=== PATIENT | male | born 1960 | race African-American/Black ===

== ENCOUNTER 2017-05-26 14:40 | Emergency (ER) | payer OTHER ==
--- NOTE | 2017-05-26 15:56 | EKG ---
Test Date: 2017-05-26 Test Time: 15:25:57 Instructor Business Education: MCKAY MEASUREMENT RESULTS: Intervals: Rate: 93 [place]: 158 QRSD: 84 QT: 328 QTc: 407 Amigo: P: 40 KY: 158 QRS: -7 T: 47 INTERPRETIVE STATEMENTS: Normal sinus rhythm Nonspecific T wave abnormality Abnormal ECG Compared to ECG 12/24/2014 23:38:13 T-wave abnormality now present Electronically Signed On 05-26-17 15:55:32 CDT by Faisal German
[2017-05-26 16:09] LABS: Absolute Lymphocytes (CBC) 1.3 K/uL (0.7-4.9); Absolute Neutrophil 10.3 K/uL (1.8-8.0); Basophils % 0.2 % (0-1.3); Eosinophils % 0.5 % (0-4.4); Hematocrit 40.9 % (39.6-49.0); MCH 25.8 pg (27.0-35.0); MCV 79.7 fL (80-100); Monocytes % 8.2 % (3.3-12.3); RBC Red Blood Cell Count 5.13 M/uL (4.33-5.43)
[2017-05-26 16:16] LABS: Protime INR 1.18
[2017-05-26 16:17] LABS: Potassium 4.1 mEq/L (3.6-5.0)
[2017-05-26 16:23] LABS: Albumin 3.7 g/dL (3.2-5.5); Bilirubin Direct 0.1 mg/dL (0-0.2); Bilirubin Total 0.6 mg/dL (0.3-1.2); Magnesium 1.6 mg/dL (1.8-2.5); Protein, Total 7.3 g/dL (6.0-8.3)
[2017-05-26 16:27] LABS: CKMB Creatine Kinase MB 2.1 ng/ml (0.3-4.0)
[2017-05-26 16:33] LABS: Urine Blood TRACE (NEG); Urine Glucose NEGATIVE (NEG); Urine Protein 2+ (NEG)
--- NOTE | 2017-05-26 16:55 | RAD REPORT ---
EXAM DESCRIPTION: RAD - Chest Single View - 05/26/2017 4:02 pm CLINICAL HISTORY: Cough, shortness of breath COMPARISON: None. TECHNIQUE: AP portable chest image was obtained . FINDINGS: Lungs are clear. Heart and vasculature are normal. No measurable pleural effusion and no p neumothorax. No gross bony abnormality seen. No acute aortic findings suspected. IMPRESSION: No acute cardiopulmonary process.
[2017-05-26] MEDS ORDERED: MAGNESIUM SULFATE 1 gm IVPB 1 GM/100 ML BAG IV ONE (17:47)
[2017-05-26] MEDS ORDERED: CIPROFLOXACIN HCL 500 MG TAB ONE (17:47)
[2017-05-26] MEDS ORDERED: CEFTRIAXONE/SWI 1gm 1 GM/10 ML SYR ONE (17:47)
--- NOTE | 2017-05-26 17:47 | ER ---
Nurse's Notes [facility] Name: Christo Mcfadden Age: 57 yrs Sex: Male : 1960 Arrival Date: 05/26/2017 Time: 14:42 Bed 7 Private MD: Diagnosis: Urinary tract infection, site not specified Presentation: 05/26 14:49 Presenting complaint: Patient states: " I have been having chills for a few days now. I ph have had chest tightness and SOB also,. I am a heart pt and I see Dr Paz." Pt reports chest tightness, SOB, and dry cough, denies N/V/D, s. 14:54 Transition of care: patient was not received from another setting of care. Onset of ph symptoms was May 26, 2017. Care prior to arrival: None. 14:54 Method Of Arrival: Ambulatory ph 14:54 Acuity: JOO 3 ph Historical: - Allergies: 14:56 No Known Drug Allergies; ph - PMHx: 14:56 Anxiety; Asthma; benign brain neoplasm; Diabetes - NIDDM; GERD; Hypertension; ph microalbuminuria; Myocardial infarction; PERIPHERAL NEUROPATHY; TIA; - PSHx: 14:56 right knee; ph - Immunization history:: Pneumococcal vaccine is up to date, Flu vaccine is not up to date. - Social history:: Smoking status: Patient/guardian denies using tobacco. Screenin:30 Abuse screen: Denies threats or abuse. Denies injuries from another. Nutritional hb screening: No deficits noted. Tuberculosis screening: No symptoms or risk factors identified. Fall Risk None identified. Assessment: 15:30 General: Appears in no apparent distress. Behavior is calm, cooperative. Pain: Denies hb pain. Neuro: Level of Consciousness is awake, alert, obeys commands, Oriented to person, place, time, situation, Pupils are PERRLA. Cardiovascular: Capillary refill < 3 seconds Patient's skin is warm and dry. Respiratory: Airway is patent Trachea midline Respiratory effort is even, unlabored, Respiratory pattern is regular, symmetrical, Breath sounds are clear bilaterally. GI: No signs and/or symptoms were reported involving the gastrointestinal system. : No signs and/or symptoms were reported regarding the genitourinary system. EENT: No signs and/or symptoms were reported regarding the EENT system. Derm: No signs and/or symptoms reported regarding the dermatologic system. Skin is intact, is healthy with good turgor. Musculoskeletal: No signs and/or symptoms reported regarding the musculoskeletal system. 16:30 Reassessment: Patient appears in no apparent distress at this time. No changes from hb previously documented assessment. Patient and/or family updated on plan of care and expected duration. Pain level reassessed. Patient is alert, oriented x 3, equal unlabored respirations, skin warm/dry/pink. 17:30 Reassessment: Patient appears in no apparent distress at this time. No changes from hb previously documented assessment. Patient and/or family updated on plan of care and expected duration. Pain level reassessed. Patient is alert, oriented x 3, equal unlabored respirations, skin warm/dry/pink. 17:50 Reassessment: Discharge ordered, IV medication infusing at this time. hb 18:40 Reassessment: IV medication still infusing, discharge pending completion of infusion. hb NAD. Denies pain. VSS. 19:18 General: Appears in no apparent distress. comfortable, Behavior is calm, cooperative, ao appropriate for age. Pain: Denies pain. Neuro: Level of Consciousness is awake, alert, obeys commands, Oriented to person, place, time, situation, Pupils are PERRLA. Cardiovascular: Reports Chest pressure that was resolved Capillary refill < 3 seconds Patient's skin is warm and dry. Respiratory: Airway is patent Respiratory effort is even, unlabored, Respiratory pattern is regular, symmetrical, Breath sounds are clear bilaterally. GI: No signs and/or symptoms were reported involving the gastrointestinal system. : No signs and/or symptoms were reported regarding the genitourinary system. EENT: No signs and/or symptoms were reported regarding the EENT system. Derm: No signs and/or symptoms reported regarding the dermatologic system. Musculoskeletal: No signs and/or symptoms reported regarding the musculoskeletal system. 19:35 Reassessment: DC instructions given to patient. Patient agrees with the POC and to ao follow up with PCP. Pt has no questions at this time. Vital Signs: 14:55 BP 170 / 85; Pulse 98; Resp 18; Temp 100.2(O); Pulse Ox 97% on R/A; Weight 127.91 kg; ph Height 5 ft. 9 in. (175.26 cm); 15:30 BP 168 / 78; Pulse 89; Resp 18; Pulse Ox 100% on R/A; Pain 0/10; hb 16:25 BP 136 / 79; Pulse 78; Resp 16; Pulse Ox 99% on R/A; Pain 0/10; hb 17:35 BP 140 / 80; Pulse 89; Resp 16; Pulse Ox 100% on R/A; Pain 0/10; hb 18:52 BP 140 / 77; Pulse 88; Resp 16; Pulse Ox 100% on R/A; hb 19:18 BP 133 / 77; Pulse 87; Resp 20; Temp 99.0(O); Pulse Ox 98% on R/A; Pain 0/10; ao 14:55 Body Mass Index 41.64 (127.91 kg, 175.26 cm) ph ED Course: 14:42 Patient arrived in ED. as 14:55 Triage completed. ph 14:57 Arm band placed on. ph 15:00 Josiah Ayon PA is PHCP. cp 15:00 Chay Solorzano MD is Attending Physician. cp 15:30 Patient has correct armband on for positive identification. Placed in gown. Bed in low hb position. Call light in reach. Side rails up X 1. ekg monitor tech on. Pulse ox on. NIBP on. 15:35 EKG done, by ED staff, reviewed by Chay Solorzano MD. ag 15:45 Inserted saline lock: 20 gauge in left antecubital area, using aseptic technique. Blood hb collected. Patient maintains SpO2 saturation greater than 95% on room air. 15:59 Influenza Screen (a \\T\\ B) Sent. hb 16:01 X-ray completed. Portable x-ray completed in exam room. Patient tolerated procedure kp1 well. 16:24 Areli Prabhakar RN is Primary Nurse. hb 19:06 Report received from NAHUM Singleton. ao 19:08 Primary Nurse role handed off by Areli Prabhakar RN hb 19:34 No provider procedures requiring assistance completed. IV discontinued, intact, ao bleeding controlled, No redness/swelling at site. Pressure dressing applied. Administered Medications: 17:33 Drug: Ciprofloxacin 500 mg Route: PO; hb 17:33 Drug: Magnesium Sulfate 1 grams Route: IVPB; Infused Over: 1 hrs; Site: left hb antecubital; 17:34 Drug: Rocephin - (cefTRIAXone) 1 grams Route: IVPB; Infused Over: 30 mins; Site: left antecubital; Outcome: 17:47 Discharge ordered by . cp 19:34 Discharged to home ambulatory. ao 19:34 Condition: stable 19:34 Discharge instructions given to patient, Instructed on discharge instructions, follow up and referral plans. Demonstrated understanding of instructions, follow-up care, medications, Prescriptions given X 2. 19:35 Patient left the ED. ao Addendum: 05/29/2017 10:17 Addendum: Culture Results: Positive urine culture. No further action required. Bacteria d m5 sensitive to prescribed antibiotic. Signatures: Fallon Junior, RN RN Marycarmen Mcgee Ana ag Hall, Patricia, RN RN Josiah De Souza PA PA cp Ortiz, Alex RN RN Areli Shelley RN RN Iveth Will kp1 Corrections: (The following items were deleted from the chart) 05/26 14:55 14:49 Presenting complaint: Patient states: " I have been having chills for a few days ph now. I have had chest tightness and SOB also,. I am a heart pt and I see Dr Paz." Pt reports chest tightness, SOB, and ph
--- NOTE | 2017-05-26 17:47 | EDPHYS ---
Physician Documentation [facility] Name: Christo Mcfadden Age: 57 yrs Sex: Male : 1960 Arrival Date: 05/26/2017 Time: 14:42 Bed 7 Private MD: ED Physician Chay Solorzano HPI: 05/26 15:25 This 57 yrs old Black Male presents to ER via Ambulatory with complaints of Chest cp Tightness, Labored Breathing. 15:25 chills. Onset: The symptoms/episode began/occurred 2 day(s) ago. cp 15:25 Severity of symptoms: in the emergency department the symptoms are unchanged despite cp home interventions. 15:25 Patient c/o of generalized chills for past 2 days, chronic right side chest pain for cp over 1 year and intermittent SOB. Patient reports slight cough and low grade fever. Historical: - Allergies: 14:56 No Known Drug Allergies; ph - PMHx: 14:56 Anxiety; Asthma; benign brain neoplasm; Diabetes - NIDDM; GERD; Hypertension; ph microalbuminuria; Myocardial infarction; PERIPHERAL NEUROPATHY; TIA; - PSHx: 14:56 right knee; ph - Immunization history:: Pneumococcal vaccine is up to date, Flu vaccine is not up to date. - Social history:: Smoking status: Patient/guardian denies using tobacco. ROS: 15:30 Eyes: Negative for injury, pain, redness, and discharge. cp 15:30 Constitutional: Positive for chills, low grade fever, Negative for poor PO intake. 15:30 ENT: Negative for drainage from ear(s), ear pain, sore throat, difficulty swallowing, difficulty handling secretions. 15:30 Cardiovascular: Negative for chest pain, edema, palpitations. 15:30 Respiratory: Positive for cough, with no reported sputum, Negative for wheezing. 15:30 Abdomen/GI: Negative for abdominal pain, nausea, vomiting, and diarrhea, black/tarry stool, rectal bleeding. 15:30 : Negative for urinary symptoms. 15:30 Skin: Negative for cellulitis, rash. 15:30 Neuro: Negative for altered mental status, dizziness, headache, syncope, near syncope, weakness. 15:30 All other systems are negative. Exam: 15:30 ECG was reviewed by the Attending Physician. cp 15:33 Constitutional: The patient appears in no acute distress, alert, awake, cp non-diaphoretic, non-toxic, well developed, well nourished. 15:33 Head/Face: Normocephalic, atraumatic. Eyes: Pupils equal round and reactive to light, cp extra-ocular motions intact. Lids and lashes normal. Conjunctiva and sclera are non-icteric and not injected. Cornea within normal limits. Periorbital areas with no swelling, redness, or edema. ENT: Nares patent. No nasal discharge, no septal abnormalities noted. Tympanic membranes are normal and external auditory canals are clear. Oropharynx with no redness, swelling, or masses, exudates, or evidence of obstruction, uvula midline. Mucous membranes moist. Neck: Trachea midline, no thyromegaly or masses palpated, and no cervical lymphadenopathy. Supple, full range of motion without nuchal rigidity, or vertebral point tenderness. No Meningismus. Chest/axilla: Normal chest wall appearance and motion. Nontender with no deformity. No lesions are appreciated. 15:33 Cardiovascular: Rate: normal, Rhythm: regular, Pulses: Pulses are 2+ in right radial artery and left radial artery. Edema: is not appreciated, JVD: is not appreciated. 15:33 Respiratory: the patient does not display signs of respiratory distress, Respirations: normal, no use of accessory muscles, no retractions, no splinting, no tachypnea, labored breathing, is not present, Breath sounds: are clear throughout, no decreased breath sounds, no stridor, no wheezing. 15:33 Abdomen/GI: Inspection: obese Bowel sounds: active, all quadrants, Palpation: abdomen is soft and non-tender, in all quadrants, rebound tenderness, is not appreciated, voluntary guarding, is not appreciated, involuntary guarding, is not appreciated. 15:33 Back: pain, is absent, ROM is normal. 15:33 Skin: cellulitis, is not appreciated, no rash present. 15:33 Neuro: Orientation: to person, place \T\ time. Mentation: is normal, Cerebellar function: is grossly normal, Motor: moves all fours, strength is normal, Sensation: no obvious gross deficits. Vital Signs: 14:55 BP 170 / 85; Pulse 98; Resp 18; Temp 100.2(O); Pulse Ox 97% on R/A; Weight 127.91 kg; ph Height 5 ft. 9 in. (175.26 cm); 15:30 BP 168 / 78; Pulse 89; Resp 18; Pulse Ox 100% on R/A; Pain 0/10; hb 16:25 BP 136 / 79; Pulse 78; Resp 16; Pulse Ox 99% on R/A; Pain 0/10; hb 17:35 BP 140 / 80; Pulse 89; Resp 16; Pulse Ox 100% on R/A; Pain 0/10; hb 18:52 BP 140 / 77; Pulse 88; Resp 16; Pulse Ox 100% on R/A; hb 19:18 BP 133 / 77; Pulse 87; Resp 20; Temp 99.0(O); Pulse Ox 98% on R/A; Pain 0/10; ao 14:55 Body Mass Index 41.64 (127.91 kg, 175.26 cm) ph MDM: 15:00 Patient medically screened. cp 16:00 Differential Diagnosis sepsis, flu, pneumonia, UTI, cardiac arrythmia, angina. cp 17:45 Data reviewed: vital signs, nurses notes, lab test result(s), EKG, radiologic studies, cp plain films. 17:45 Test interpretation: by ED physician or midlevel provider: ECG, plain radiologic cp studies. Counseling: I had a detailed discussion with the patient and/or guardian regarding: the historical points, exam findings, and any diagnostic results supporting the discharge/admit diagnosis, lab results, radiology results, the need for outpatient follow up, a family practitioner, to return to the emergency department if symptoms worsen or persist or if there are any questions or concerns that arise at home. 17:45 ED course: VSS. Labs reviewed and urine positive for nitrites, WBCs and bacteria. Chest cp pain and SOB chronic. Will discharge to home for continued monitoring. 05/26 15:45 Order name: Basic Metabolic Panel cp 05/26 15:45 Order name: BNP cp 05/26 15:45 Order name: CBC with Diff cp 05/26 15:45 Order name: Ckmb cp 05/26 15:45 Order name: CPK cp 05/26 15:45 Order name: LFT's cp 05/26 15:45 Order name: Magnesium cp 05/26 15:45 Order name: PT-INR cp 05/26 15:45 Order name: Ptt, Activated cp 05/26 15:45 Order name: Troponin (emerg Dept Use Only) cp 05/26 15:45 Order name: Influenza Screen (a \T\ B) 05/26 16:11 Order name: CBC with Automated Diff; Complete Time: 17:00 EDMS 05/26 17:04 Interpretation: Normal except: WBC 12.7; HGB 13.2; MCV 79.7; MCH 25.8; RDW 15.3; LISSETT% cp 81.1; LYM% 10.0; NEUT A 10.3. 05/26 16:16 Order name: Influenza Screen (A ; Complete Time: 17:00 EDMS 05/26 15:45 Order name: XRAY Chest (1 view) 05/26 16:17 Order name: Basic Metabolic Panel; Complete Time: 17:00 EDMS 05/26 17:04 Interpretation: Normal except: GLUC 136; GFR 72. 05/26 16:17 Order name: Protime (+INR); Complete Time: 17:00 EDMS 05/26 17:23 Interpretation: Abnormal: PT 14.0. 05/26 16:17 Order name: PTT, Activated Partial Thromb; Complete Time: 17:00 EDMS 05/26 16:24 Order name: Liver (Hepatic) Function; Complete Time: 17:00 EDMS 05/26 16:24 Order name: Creatine Phosphokinase; Complete Time: 17:00 EDMS 05/26 17:30 Interpretation: CPK 282; Reviewed. 05/26 16:24 Order name: Magnesium; Complete Time: 17:00 EDMS 05/26 17:25 Interpretation: MG 1.6; Reviewed. 05/26 16:24 Order name: Troponin (Emerg Dept Use Only); Complete Time: 17:00 EDMS 05/26 16:27 Order name: CKMB Creatine Kinase MB; Complete Time: 17:00 EDMS 05/26 16:33 Order name: Urine Dipstick-Ancillary; Complete Time: 17:00 EDMS 05/26 17:04 Interpretation: Normal except: UBLD TRACE; UPROT 2+; U NIT POSITIVE; UESTR 1+. 05/26 16:36 Order name: BNP B-Type Natriuretic Peptide; Complete Time: 17:00 EDMS 05/26 16:55 Order name: RAD; Complete Time: 17:00 EDMS 05/26 17:05 Order name: Urine Microscopic Only 05/26 17:05 Order name: Urine Culture 05/26 18:16 Order name: Urine Microscopic Only [facility] 05/26 15:22 Order name: EKG; Complete Time: 15:23 sv 05/26 15:22 Order name: EKG - Nurse/Tech; Complete Time: 15:35 sv 05/26 15:45 Order name: Cardiac monitoring; Complete Time: 15:59 cp 05/26 15:45 Order name: IV Saline Lock; Complete Time: 15:59 cp 05/26 15:45 Order name: Labs collected and sent; Complete Time: 15:59 cp 05/26 15:45 Order name: O2 Per Protocol; Complete Time: 16:00 cp 05/26 15:45 Order name: O2 Sat Monitoring; Complete Time: 16:00 cp 05/26 15:45 Order name: Urine Dipstick-Ancillary (obtain specimen); Complete Time: 17:34 cp EC:30 Rate is 93 beats/min. CO interval is normal. QRS interval is normal. QT interval is cp normal. No ST changes noted. Interpreted by me. Reviewed by me. Administered Medications: 17:33 Drug: Ciprofloxacin 500 mg Route: PO; hb 17:33 Drug: Magnesium Sulfate 1 grams Route: IVPB; Infused Over: 1 hrs; Site: left hb antecubital; 17:34 Drug: Rocephin - (cefTRIAXone) 1 grams Route: IVPB; Infused Over: 30 mins; Site: left hb antecubital; Disposition: 05/26/17 17:47 Discharged to Home. Impression: Urinary tract infection, site not specified. - Condition is Stable. - Discharge Instructions: Urinary Tract Infection. - Prescriptions for Cipro 500 mg Oral Tablet - take 1 tablet by ORAL route every 12 hours for 10 days; 20 tablet. Ibuprofen 800 mg Oral Tablet - take 1 tablet by ORAL route every 8 hours As needed take with food; 30 tablet. - Medication Reconciliation Form, Thank You Letter, Antibiotic Education, Prescription Opioid Use form. - Follow up: Private Physician; When: 1 - 2 days; Reason: Recheck today's complaints. - Problem is new. - Symptoms have improved. Addendum: 05/30/2017 07:27 Co-signature as Attending Physician, Chay Solorzano MD. g s Signatures: Dispatcher [facility] Suyapa Hampton RN RN Destiny Penn RN RN ph Page, YOCASTA Rahman cp, Alex, RN RN ao Baxter, Heather, RN RN hb Starr, Gregory, MD MD gs Corrections: (The following items were deleted from the chart) 05/26 16:00 15:45 URINE DIPSTICK--ANCILLARY+U.LAB.BRZ ordered. EDMS EDMS
[2017-05-26 18:15] LABS: Urine Amorphous Sediment 2+ /HPF (NONE SEEN); Urine Bacteria 20-50 /HPF (NONE SEEN); Urine Culture Reflex Order NOT NEEDED
[2017-05-26 19:47] VITALS: BP 133/77; TEMP 99; O2SAT 98
== END 2017-05-26 19:35 | disposition home or self-care (01) ==
LOC: ER 14:40
DX: N39.0 Urinary tract infection, site not specified (principal); I10 Essential (primary) hypertension
CPT/HCPCS: 36415; 71045; 80048; 80076; 81003; 81015; 82550; 82553; 83735; 83880; 84484; 85025; 85610; 85730; 87077; 87086; 87088; 87186; 87804; 93005; 96374; 96375; 99285; J0696; J3475

== ENCOUNTER 2017-06-11 06:21 | Day surgery (SDC) | payer MEDICAID ==
[2017-06-07 10:21] LABS: Absolute Lymphocytes (CBC) 2.3 K/uL (0.7-4.9); Absolute Monocytes 0.7 K/uL (0.1-1.3); Absolute Neutrophil 5.5 K/uL (1.8-8.0); Basophils % 0.5 % (0-1.3); Eosinophils % 1.4 % (0-4.4); Hematocrit 41.4 % (39.6-49.0); Lymphocytes % 26.4 % (15.3-44.8); MCH 26.2 pg (27.0-35.0); MCV 79.7 fL (80-100); MPV 8.7 fL (7.6-11.3); Monocytes % 7.9 % (3.3-12.3)
[2017-06-07 10:22] LABS: Protime INR 0.99
[2017-06-07 10:37] LABS: BUN Blood Urea Nitrogen 11 mg/dL (6-20); Bicarbonate 26 mEq/L (21-31); Glucose Level 144 mg/dL (65-120); Sodium Level 134 mEq/L (135-145)
--- NOTE | 2017-06-07 10:39 | RAD REPORT ---
EXAM DESCRIPTION: RADOP - Outpt Chest Pa/Lat (2 Views) - 06/07/2017 9:46 am CLINICAL HISTORY: Hypertension, diabetes. COMPARISON: 05/26/2017 FINDINGS: The lungs are clear. The heart is upper limit of normal in size. No displaced fractures. IMPRESSION: No acute or concerning finding suspected.
[2017-06-11] MEDS ORDERED: NA CHLORIDE 0.9% 500 ML ONE (06:29)
[2017-06-11] MEDS ORDERED: LIDOCAINE 1% 20 ML MDV ONE ×2 (06:31→07:06)
[2017-06-11] MEDS ORDERED: HEPA 1000U/500MLS 1,000 UNIT/500 ML BAG IV ONE (07:06)
[2017-06-11] MEDS ORDERED: MIDAZOLAM HCL 2 MG/2 ML INJ ONE ×3 (07:07→07:48)
[2017-06-11] MEDS ORDERED: FENTANYL CITR 100 MCG/2 ML ONE (07:07)
[2017-06-11 11:49] VITALS: BP 127/47; TEMP 97.4; O2SAT 99
--- NOTE | 2017-06-12 03:06 | OP ---
Date of Procedure: 06/11/2017 Surgeon: Jesús Paula MD Ballistics Expert Forensic: Carol Lamar. Admitted today, 06/11/2017, as an outpatient for a left heart catheterization, selective coronary art eriogram, and LV-gram. Indication For The Procedure: History of coronary artery disease with symptoms consistent with unsta ble angina. History Of Present Illness: Mr. Mcfadden is a 57-year-old black male, who has had apparently some comp licated stents in the past in the RCA and a stent in the LAD. He came in, saw him in the office rece ntly with symptoms sounding like unstable angina. He had a normal EKG. He was admitted as an outpat ient. Procedure In Detail: He was prepped and prepped and draped in the routine sterile fashion. He was g iven 2 mg of Versed for IV sedation. Right common femoral artery access was obtained with a 6-Slovak sheath. Angiogram data after the case was normal. Angio-Seal was used to close the case. Selectiv e coronary arteriogram done with Shiraz catheter left and right, showed patent stent in the LAD, nor mal circumflex. He had some minimal disease in the RCA with plaquing. He had about 40% distal steno sis in the posterior descending artery off the RCA. He was right abdominal. LV-gram was normal. Complications: There were no complications. Estimated Blood Loss: 5 cc. Total Conscious Sedation: 30 minutes. Final Assessment: Mild coronary artery disease with patent stents in the left anterior descending ar ileana. We will continue medical therapy. He will go home today and follow up with me in 2 weeks. CALEB/FRANK Voice ID: [id number] Report ID: [id number]
== END 2017-06-11 11:55 | disposition home or self-care (01) ==
LOC: CCL 06:21
DX: I25.110 Atherosclerotic heart disease of native coronary artery with unstable angina pectoris (principal); I10 Essential (primary) hypertension; Z95.5 Presence of coronary angioplasty implant and graft; E78.6 Lipoprotein deficiency; E11.9 Type 2 diabetes mellitus without complications
CPT/HCPCS: 36415; 71046; 80048; 82962; 85025; 85610; 85730; 93458; C1893; J2250; J3010

== ENCOUNTER 2018-04-21 08:21 | Inpatient (IN) | payer OTHER ==
--- OUTSIDE RECORDS SUMMARY | 2018-04-21 08:23 | XMS REPORT ---
:1960 [facility] Address [address] [place] [address] [place] [id number] Care Team Providers Name Role Phone Unavailable Unavailable Unavailable Problems This patient has no known problems. Allergies, Adverse Reactions, Alerts This patient has no known allergies or adverse reactions. Medications This patient has no known medications.
[2018-04-21 08:43] LABS: Absolute Lymphocytes (CBC) 3.4 K/uL (0.7-4.9); Absolute Monocytes 0.9 K/uL (0.1-1.3); Absolute Neutrophil 5.3 K/uL (1.8-8.0); Basophils % 0.7 % (0-1.3); MPV 9.2 fL (7.6-11.3); Monocytes % 9.3 % (3.3-12.3); RBC Red Blood Cell Count 5.97 M/uL (4.33-5.43)
[2018-04-21 08:47] LABS: Protime INR 1.02
--- NOTE | 2018-04-21 08:51 | EKG ---
Test Date: 2018-04-21 Test Time: 08:31:49 Corporate Receptionist: ESTELA MEASUREMENT RESULTS: Intervals: Rate: 91 MD: 164 QRSD: 90 QT: 354 QTc: 435 Spangler: P: 78 MD: 164 QRS: 43 T: 22 INTERPRETIVE STATEMENTS: Normal sinus rhythm Normal ECG Compared to ECG 05/26/2017 15:25:57 T-wave abnormality no longer present Electronically Signed On 04-21-18 08:50:14 SHOP HELPER by Faisal German
[2018-04-21] MEDS ORDERED: ONDANSETRON 4 MG/2 ML VIAL ONE (08:53)
[2018-04-21] MEDS ORDERED: NA CHLORIDE 0.9% 1,000 ML ONE (08:53)
[2018-04-21] MEDS ORDERED: MORPHINE 4 MG/ML SYR ONE (08:53)
[2018-04-21 09:12] LABS: ALT/SGPT 23 U/L (12-78); AST/SGOT 11 U/L (15-37); Albumin 3.8 g/dL (3.4-5.0); Alkaline Phosphatase 81 U/L (45-117); BUN Blood Urea Nitrogen 14 mg/dL (7-18); Bicarbonate 27 mmol/L (21-32); Bilirubin Direct < 0.1 mg/dL (0-0.2); Bilirubin Total 0.3 mg/dL (0.2-1.0); Glucose Level 155 mg/dL (74-106); Lipase 115 U/L (73-393); Magnesium 2.1 mg/dL (1.8-2.4); NT PRO-BNP 44 pg/mL (<125); Protein, Total 8.5 g/dL (6.4-8.2); Sodium Level 138 mmol/L (136-145); Troponin (Emerg Dept Use Only) < 0.02 ng/mL (0.0-0.045)
--- NOTE | 2018-04-21 09:19 | EDPHYS ---
Physician Documentation [facility] Name: Christo Mcfadden Age: 57 yrs Sex: Male : 1960 Arrival Date: 04/21/2018 Time: 08:22 Bed 4 Private MD: Femi Walsh E ED Physician Josiah Prakash HPI: 04/21 09:14 This 57 yrs old Black Male presents to ER via Wheelchair with complaints of Chest Pain. traci 09:14 The patient or guardian reports chest pain that is located primarily in the substernal traci area. Onset: just prior to arrival. The pain does not radiate. Associated signs and symptoms: The patient has no apparent associated signs or symptoms. The chest pain is described as dull, a pressure. Duration: The patient or guardian reports multiple episodes, that are intermittent, with no pattern. Severity of pain: At its worst the pain was moderate in the emergency department the pain is unchanged. Historical: - Allergies: 08:28 No Known Allergies; ss - PMHx: 08:28 Anxiety; Asthma; benign brain neoplasm; Diabetes - NIDDM; GERD; Hypertension; ss microalbuminuria; Myocardial infarction; PERIPHERAL NEUROPATHY; TIA; - PSHx: 08:28 right knee; cardiac stents x 5; ss - Immunization history:: Adult Immunizations up to date. - Social history:: Smoking status: Patient/guardian denies using tobacco. - Ebola Screening: : Patient denies exposure to infectious person Patient denies travel to an Ebola-affected area in the 21 days before illness onset. - Family history:: not pertinent. ROS: 09:14 Constitutional: Negative for fever, chills, and weight loss, Eyes: Negative for injury, traci pain, redness, and discharge, ENT: Negative for injury, pain, and discharge, Neck: Negative for injury, pain, and swelling, Respiratory: Negative for shortness of breath, cough, wheezing, and pleuritic chest pain, Abdomen/GI: Negative for abdominal pain, nausea, vomiting, diarrhea, and constipation, Back: Negative for injury and pain, : Negative for injury, bleeding, discharge, and swelling, MS/Extremity: Negative for injury and deformity, Skin: Negative for injury, rash, and discoloration, Neuro: Negative for headache, weakness, numbness, tingling, and seizure, Psych: Negative for depression, anxiety, suicide ideation, homicidal ideation, and hallucinations, Allergy/Immunology: Negative for hives, rash, and allergies, Endocrine: Negative for neck swelling, polydipsia, polyuria, polyphagia, and marked weight changes, Hematologic/Lymphatic: Negative for swollen nodes, abnormal bleeding, and unusual bruising. 09:14 Constitutional: Positive for fatigue, malaise. 09:14 Cardiovascular: Positive for chest pain, of the chest. Exam: 09:14 Constitutional: This is a well developed, well nourished patient who is awake, alert, traci and in no acute distress. Head/Face: Normocephalic, atraumatic. Eyes: Pupils equal round and reactive to light, extra-ocular motions intact. Lids and lashes normal. Conjunctiva and sclera are non-icteric and not injected. Cornea within normal limits. Periorbital areas with no swelling, redness, or edema. ENT: Nares patent. No nasal discharge, no septal abnormalities noted. Tympanic membranes are normal and external auditory canals are clear. Oropharynx with no redness, swelling, or masses, exudates, or evidence of obstruction, uvula midline. Mucous membranes moist. Neck: Trachea midline, no thyromegaly or masses palpated, and no cervical lymphadenopathy. Supple, full range of motion without nuchal rigidity, or vertebral point tenderness. No Meningismus. Chest/axilla: Normal chest wall appearance and motion. Nontender with no deformity. No lesions are appreciated. Cardiovascular: Regular rate and rhythm with a normal S1 and S2. No gallops, murmurs, or rubs. Normal PMI, no JVD. No pulse deficits. Respiratory: Lungs have equal breath sounds bilaterally, clear to auscultation and percussion. No rales, rhonchi or wheezes noted. No increased work of breathing, no retractions or nasal flaring. Abdomen/GI: Soft, non-tender, with normal bowel sounds. No distension or tympany. No guarding or rebound. No evidence of tenderness throughout. Back: No spinal tenderness. No costovertebral tenderness. Full range of motion. Male : Normal genitalia with no discharge or lesions. Skin: Warm, dry with normal turgor. Normal color with no rashes, no lesions, and no evidence of cellulitis. MS/ Extremity: Pulses equal, no cyanosis. Neurovascular intact. Full, normal range of motion. Neuro: Awake and alert, GCS 15, oriented to person, place, time, and situation. Cranial nerves II-XII grossly intact. Motor strength 5/5 in all extremities. Sensory grossly intact. Cerebellar exam normal. Normal gait. Psych: Awake, alert, with orientation to person, place and time. Behavior, mood, and affect are within normal limits. Vital Signs: 08:28 BP 192 / 110; Pulse 91; Resp 25; Temp 98.5(O); Pulse Ox 100% on R/A; Weight 131.54 kg; ss Height 5 ft. 9 in. (175.26 cm); Pain 10/10; 09:30 BP 162 / 74; Pulse 72; Resp 20; Pulse Ox 97% on R/A; ph 10:30 BP 149 / 88; Pulse 68; Resp 17; Pulse Ox 98% on R/A; tw2 11:30 BP 135 / 74; Pulse 73; Resp 20; Pulse Ox 100% ; sv 08:28 Body Mass Index 42.83 (131.54 kg, 175.26 cm) MDM: 08:29 Patient medically screened. [facility] 09:16 Data reviewed: vital signs, nurses notes, lab test result(s), EKG, radiologic studies, traci plain films. 04/21 08:31 Order name: Basic Metabolic Panel; Complete Time: 09:41 ph 04/21 08:31 Order name: CBC with Diff; Complete Time: 09:05 ph 04/21 08:31 Order name: LFT's; Complete Time: 09:41 ph 04/21 08:31 Order name: Magnesium; Complete Time: 09:41 ph 04/21 08:31 Order name: NT PRO-BNP; Complete Time: 09:41 ph 18 08:31 Order name: PT-INR; Complete Time: 09:05 ph 18 08:31 Order name: Troponin (emerg Dept Use Only); Complete Time: 09:41 ph 04/21 08:31 Order name: XRAY Chest (1 view); Complete Time: 09:41 ph 04/21 08:32 Order name: Lipase; Complete Time: 09:41 traci 04/21 08:31 Order name: EKG; Complete Time: 08:32 ph 04/21 08:31 Order name: Cardiac monitoring; Complete Time: 08:57 ph 04/21 08:31 Order name: EKG - Nurse/Tech; Complete Time: 08:57 ph 04/21 08:31 Order name: IV Saline Lock; Complete Time: 08:57 ph 04/21 08:31 Order name: Labs collected and sent; Complete Time: 08:57 ph 04/21 08:31 Order name: O2 Per Protocol; Complete Time: 08:57 ph 04/21 08:31 Order name: O2 Sat Monitoring; Complete Time: 08:57 ph Administered Medications: 08:56 Drug: NS 0.9% 1000 ml Route: IV; Rate: 125 ml/hr; Site: left antecubital; ph 08:56 Drug: morphine 4 mg Route: IVP; Site: left antecubital; ph 09:58 Follow up: Response: No adverse reaction; Pain is decreased ph 08:56 Drug: Zofran 4 mg Route: IVP; Site: left antecubital; ph 09:58 Follow up: Response: No adverse reaction ph 09:26 Drug: Lopressor (metoprolol TARTRATE) 50 mg Route: PO; ph 09:58 Follow up: Response: No adverse reaction ph 09:27 Drug: Aspirin 81 mg Route: PO; ph 09:59 Follow up: Response: No adverse reaction ph 09:28 Drug: Lovenox 1 mg/kg {Note: 130 mg dose given.} Route: Sub-Q; Site: right lower ph abdomen; 09:58 Follow up: Response: No adverse reaction ph Disposition: 04/21/18 09:18 Hospitalization ordered by Kenneth Latif for Observation. Preliminary diagnosis are Chest pain, unspecified, Type 2 diabetes mellitus, Essential (primary) hypertension, Obesity, unspecified. - Bed requested for Telemetry/MedSurg (observation). - Status is Observation. tw2 - Condition is Fair. - Problem is new. - Symptoms have improved. UTI on Admission? No Signatures: Dispatcher [employer] Breanna Block RN RN Josiah Jacobsen MD MD cha Smirch, Shelby RN Destiny Dawkins RN RN ph Wise, Tara, RN RN tw2 Corrections: (The following items were deleted from the chart) 11:15 09:18 Hospitalization Ordered by Kenneth Latif DO for Observation. Preliminary romy diagnosis is Chest pain, unspecified; Type 2 diabetes mellitus; Essential (primary) hypertension; Obesity, unspecified. Bed requested for Telemetry/MedSurg (observation). Status is Observation. Condition is Fair. Problem is new. Symptoms have improved. UTI on Admission? No. traci 11:50 11:15 04/21/2018 09:18 Hospitalization Ordered by Kenneth Latif DO for Observation. tw2 Preliminary diagnosis is Chest pain, unspecified; Type 2 diabetes mellitus; Essential (primary) hypertension; Obesity, unspecified. Bed requested for Telemetry/MedSurg (observation). Status is Observation. Condition is Fair. Problem is new. Symptoms have improved. UTI on Admission? No. dw
--- NOTE | 2018-04-21 09:19 | ER ---
Nurse's Notes [facility] Name: Christo Mcfadden Age: 57 yrs Sex: Male : 1960 Arrival Date: 04/21/2018 Time: 08:22 Bed 4 Private MD: Femi Walsh E Diagnosis: Chest pain, unspecified;Type 2 diabetes mellitus;Essential (primary) hypertension;Obesity, unspecified Presentation: 04/21 08:26 Presenting complaint: Patient states: Chest pain that began just prior to arrival. Pt ss self administered a SL nitro and reports minimal relief. Also reports increased belching x 2-3 days. Transition of care: Dr. Walsh office. Pt reports he went there to make an appointment initially for the belching, but then began having chest pain. Onset of symptoms was April 21, 2018. Risk Assessment: Do you want to hurt yourself or someone else? Patient reports no desire to harm self or others. Initial Sepsis Screen: Does the patient meet any 2 criteria? No. Patient's initial sepsis screen is negative. Does the patient have a suspected source of infection? No. Patient's initial sepsis screen is negative. Care prior to arrival: None. 08:26 Method Of Arrival: Wheelchair ss 08:26 Acuity: JOO 2 ss Historical: - Allergies: 08:28 No Known Allergies; ss - PMHx: 08:28 Anxiety; Asthma; benign brain neoplasm; Diabetes - NIDDM; GERD; Hypertension; ss microalbuminuria; Myocardial infarction; PERIPHERAL NEUROPATHY; TIA; - PSHx: 08:28 right knee; cardiac stents x 5; ss - Immunization history:: Adult Immunizations up to date. - Social history:: Smoking status: Patient/guardian denies using tobacco. - Ebola Screening: : Patient denies exposure to infectious person Patient denies travel to an Ebola-affected area in the 21 days before illness onset. - Family history:: not pertinent. Screenin:57 Abuse screen: Denies threats or abuse. Denies injuries from another. Nutritional ph screening: No deficits noted. Tuberculosis screening: No symptoms or risk factors identified. Fall Risk None identified. Assessment: 08:45 General: Appears in no apparent distress. uncomfortable, obese, well groomed, Behavior ph is cooperative, appropriate for age, anxious, Denies fever, feeling ill. Pain: Complains of pain in mid-sternal area Pain radiates to neck Pain currently is 9 out of 10 on a pain scale. Pain began 2-3 days ago. Neuro: Level of Consciousness is awake, alert, obeys commands, Oriented to person, place, time, situation. Cardiovascular: Reports chest pain, lightheadedness, nausea, shortness of breath, Denies syncope, vomiting, Capillary refill < 3 seconds Patient's skin is warm and dry. Chest pain is located in substernal area radiates neck. Respiratory: Reports shortness of breath at rest Airway is patent Respiratory effort is even, unlabored, Respiratory pattern is regular, symmetrical, Breath sounds are clear bilaterally. GI: Abdomen is round Bowel sounds present X 4 quads. Reports nausea, Patient currently denies abdominal pain, diarrhea, vomiting. Derm: Skin is intact, is healthy with good turgor, Skin is pink, warm \T\ dry. Musculoskeletal: Circulation, motion, and sensation intact. Range of motion: intact in all extremities. 09:15 Reassessment: Patient appears in no apparent distress at this time. Patient and/or ph family updated on plan of care and expected duration. Pain level reassessed. Patient is alert, oriented x 3, equal unlabored respirations, skin warm/dry/pink. Pt reports that pain has improved to 5/10, denies nausea, VSS, SO at bedside. Vital Signs: 08:28 BP 192 / 110; Pulse 91; Resp 25; Temp 98.5(O); Pulse Ox 100% on R/A; Weight 131.54 kg; ss Height 5 ft. 9 in. (175.26 cm); Pain 10/10; 09:30 BP 162 / 74; Pulse 72; Resp 20; Pulse Ox 97% on R/A; ph 10:30 BP 149 / 88; Pulse 68; Resp 17; Pulse Ox 98% on R/A; tw2 11:30 BP 135 / 74; Pulse 73; Resp 20; Pulse Ox 100% ; sv 08:28 Body Mass Index 42.83 (131.54 kg, 175.26 cm) ED Course: 08:22 Patient arrived in ED. mr 08:22 Femi Walhs MD is Private Physician. mr 08:27 Triage completed. ss 08:28 Arm band placed on right wrist. 08:29 Josiah Prakash MD is Attending Physician. [facility] 08:30 Destiny Penn RN is Primary Nurse. ph 08:40 Inserted saline lock: 18 gauge in left antecubital area, using aseptic technique. ph Patient maintains SpO2 saturation greater than 95% on room air. 08:42 EKG done, by hvac/r service technician. reviewed by Josiah Prakash MD. at1 08:49 X-ray completed. Portable x-ray completed in exam room. Patient tolerated procedure sw well. 08:50 XRAY Chest (1 view) In Process Unspecified. EDMS 09:17 Kenneth Latif DO is Hospitalizing Provider. traci 09:59 Patient has correct armband on for positive identification. Bed in low position. Call ph light in reach. Side rails up X 1. surveillance monitor on. Pulse ox on. NIBP on. Door closed. Noise minimized. Warm blanket given. 10:00 No provider procedures requiring assistance completed. ph 10:01 Patient admitted, IV remains in place. ph Administered Medications: 08:56 Drug: NS 0.9% 1000 ml Route: IV; Rate: 125 ml/hr; Site: left antecubital; ph 08:56 Drug: morphine 4 mg Route: IVP; Site: left antecubital; ph 09:58 Follow up: Response: No adverse reaction; Pain is decreased ph 08:56 Drug: Zofran 4 mg Route: IVP; Site: left antecubital; ph 09:58 Follow up: Response: No adverse reaction ph 09:26 Drug: Lopressor (metoprolol TARTRATE) 50 mg Route: PO; ph 09:58 Follow up: Response: No adverse reaction ph 09:27 Drug: Aspirin 81 mg Route: PO; ph 09:59 Follow up: Response: No adverse reaction ph 09:28 Drug: Lovenox 1 mg/kg {Note: 130 mg dose given.} Route: Sub-Q; Site: right lower ph abdomen; 09:58 Follow up: Response: No adverse reaction ph Outcome: 09:18 Decision to Hospitalize by Provider. traci 11:32 Admitted to Med/surg accompanied by tech, via wheelchair, Report called to NAHUM Packer tw2 11:32 Condition: stable 11:34 Admitted to Tele accompanied by tech, via stretcher, room 405, with chart, Report sv called to Ochoa Case RN 11:34 Condition: stable 11:34 Instructed on the need for admit. 11:50 Patient left the ED. tw2 Signatures: Dispatcher [employer] EDSuyapa Reyes, RN RN Josiah Mcarthur MD MD cha Rivera, Diann mr Katarzyna Garcia, RN RN Yuki Hernandez, business mgr EKG Tat1 Destiny Penn, RN RN Mignon Angeles Tara RN RN tw2
[2018-04-21] MEDS ORDERED: METOPROLOL TAR 50 MG TAB ONE (09:28)
[2018-04-21] MEDS ORDERED: ENOXAPARIN 100 MG/ML SYR SQ ONE (09:28)
[2018-04-21] MEDS ORDERED: ASPIRIN 81 MG CHEWABLE TABLET ONE (09:28)
[2018-04-21] MEDS ORDERED: ENOXAPARIN 30 MG/0.3 ML SQ ONE (09:29)
--- NOTE | 2018-04-21 09:30 | RAD REPORT ---
EXAM DESCRIPTION: Lisa Single View04/21/2018 8:52 am CLINICAL HISTORY: Chest pain COMPARISON: May 2017 FINDINGS: The lungs appear clear of acute infiltrate. The heart is normal size IMPRESSION: No acute abnormalities displayed
--- NOTE | 2018-04-21 10:11 | P.HP ---
Certification for Inpatient Patient admitted to: Observation With expected LOS: <2 Midnights Patient will require the following post-hospital care: None Practitioner: I am a practitioner with admitting privileges, knowledge of patient current condition, hospital course, and medical plan of care. Services: Services provided to patient in accordance with Admission requirements found in Title 42 Section 412.3 of the Code of Federal Regulations Patient History Date of Service: 04/21/18 Primary Care Provider: Dr. Walsh; Cardiology-Dr. Downing([facility] Reason for admission: Chest pain History of Present Illness: 57-year-old male presented to the emergency room with chest pain. Patient reports chest pain from time to time. He reported increasing chest pain today. Chest pain usually occurs with exertion. It is mainly to the right side of the sternum. It is associated with some shortness of breath and nausea. It has been occurring more frequently. Patient is seen by cardiology at [facility]. He reports having a recent stress test that was abnormal. Patient has history of heart catheterization in June 2017. He had a paint LAD and normal circumflex. Mild plaquing to the RCA was noted with noted 40% stenosis to the distal posterior descending off of the RCA. Patient was to continue with medical management at that time. In the ER patient evaluated. EKG showed no significant ST changes. Troponin less than 0.02. White count 9.8, hemoglobin 15. Sodium 138 potassium 4.0. BUN of 14, creatinine 1.19 with a GFR 76. Glucose 155. Patient was admitted for observation. When I saw the patient ER, he appeared comfortable. Pain improved. Patient takes multiple medications including Norvasc, Lasix, Ranexa, Lipitor, losartan, Neurontin and hydrocodone. Patient with history of diabetes, CAD, hypertension , hyperlipidemia, GERD, and neuropathy. It is been recommended by his final dressing cutter to have a sleep study to evaluate for underlying sleep apnea. Allergies No Known Drug Allergies Allergy (Verified 06/07/17 09:28) Unknown No Known Allergies Allergy (Uncoded 08/04/16 10:26) Unknown Home medications list reviewed: Yes Home Medications: Aspirin Chewable [Aspirin Chewable*] 81 mg PO DAILY 06/16/14 Omeprazole [Prilosec] 40 mg PO DAILY #30 capsule. 06/17/14 - Past Medical/Surgical History Diabetic: No -: Hypertension -: History TIA -: Diabetes mellitus type 2 -: Hyperlipidemia -: Diabetic neuropathy -: GERD -: Obesity -: CAD with prior stents -: Right Knee Surgery -: Cardiac stents Psychosocial/ Personal History: Patient is - Family History Father -: Heart disease, Hypertension Brother -: Heart disease - Social History Smoking Status: Never smoker Alcohol use: No CD- Drugs: No Caffeine use: Yes Place of Residence: Home Review of Systems General: As per HPI Eyes: Unremarkable ENT: Unremarkable Respiratory: Shortness of Breath, As per HPI Cardiovascular: Chest Pain, As per HPI Gastrointestinal: Nausea, As per HPI Genitourinary: Unremarkable Musculoskeletal: Unremarkable Integumentary: Unremarkable Neurological: Unremarkable Lymphatics: Unremarkable Physical Examination - Physical Exam General: Alert, In no apparent distress, Oriented x3, Cooperative HEENT: Atraumatic, Normocephalic, PERRLA, Mucous membr. moist/pink Neck: Supple, No Thyromegaly Respiratory: Clear to auscultation bilaterally, Normal air movement Cardiovascular: Normal pulses, Regular rate/rhythm Gastrointestinal: Normal bowel sounds, Soft and benign, Non-distended, No ascites, No tenderness, No masses, No rebound, No guarding Musculoskeletal: No erythema, No tenderness, No warmth Integumentary: No tenderness/swelling, No erythema, No warmth, No cyanosis Neurological: Normal speech, Normal strength at 5/5 x4 extr, Normal tone, Normal affect - Studies Laboratory Data (last 24 hrs) 04/21/18 08:30: PT 12.0, INR 1.02 04/21/18 08:30: WBC 9.8, Hgb 15.3, Hct 47.0, Plt Count 244 04/21/18 08:30: Sodium 138, Potassium 4.0, BUN 14, Creatinine 1.19, Glucose 155 H, Magnesium 2.1, Total Bilirubin 0.3, AST 11 L, ALT 23, Alkaline Phosphatase 81 , Lipase 115 Assessment and Plan - Plan Impression: Chest pain likely related to unstable angina with history of CAD with noted stents in the past with prior heart catheterization June 2017 showing RCA plaquing with 40% stenosis of the posterior descending off of the RCA Hypertension Diabetes mellitus type 2 Diabetic neuropathy Hyperlipidemia GERD Suspect obstructive sleep apnea Obesity Plan: Chest pain likely related to unstable angina with history of CAD with noted stents in the past with prior heart catheterization June 2017 showing RCA plaquing with 40% stenosis of the posterior descending off of the RCA: Patient will be admitted for further evaluation. Will continue to monitor cardiac enzymes and telemetry. Will continue with home medication. Will order echocardiogram. Will try to obtain recent cardiac stress tests as the patient reported having this done with his final dressing cutter at [facility]. Will consult cardiology for further evaluation. Suspect patient may require heart catheterization for further evaluation. Await further recommendations. Hypertension: Continue with home medication including Norvasc and losartan. Will monitor and adjust appropriately. Diabetes mellitus type 2: Continue with sliding scale. Diabetic neuropathy: Continue with home medication of Neurontin and hydrocodone. Hyperlipidemia: Continue with Lipitor. Will check fasting lipid panel. GERD: Continue with Protonix. Suspect obstructive sleep apnea: Patient needs to have sleep study done as an outpatient to further evaluate. Obesity: Will check late BMI. Will address lifestyle modification education. Discharge Plan: Home Plan to discharge in: 24 Hours - Advance Directives Does patient have a Living Will: No Does patient have a Durable POA for Healthcare: No - Code Status/Comfort Care Code Status Assessed: Yes (Patient full code.) Time Spent Managing Pts Care (In Minutes): 55
[2018-04-21] MEDS: INSULIN -REGULAR HUMAN 50 UNIT/0.5 ML ML SQ SCH ×3 (12:06→21:00)
[2018-04-21] MEDS ORDERED: ACETAMINOPHEN 500 MG TAB PO PRN (12:06)
[2018-04-21] MEDS ORDERED: ONDANSETRON 4 MG/2 ML VIAL IV PRN (12:06)
[2018-04-21 12:27] VITALS: BMI 42.8
[2018-04-21 13:42] LABS: CKMB Creatine Kinase MB 6.2 ng/mL (0.3-3.6); Thyroid Stimulating Hormone 1.43 uIU/mL (0.360-3.740)
[2018-04-21 13:54] LABS: Troponin I 0.67 ng/mL (0.0-0.045)
[2018-04-21] MEDS ORDERED: D50W 25 GM/50 ML SYRINGE IV PRN (14:23)
[2018-04-21] MEDS ORDERED: GLUCAGON 1 MG/VIAL IM PRN (14:23)
--- NOTE | 2018-04-21 16:57 | ECHO ---
HEIGHT: 5 ft 9 in WEIGHT: 290 lb 0 oz DATE OF STUDY: 04/21/[address]: Kenneth Latif DO 2-DIMENSIONAL: YES M.MODE: YES DOPPLER: YES COLOR FLOW: YES TDS: YES PORTABLE: DEFINITY: BUBBLE STUDY: DIAGNOSIS: CHEST PAIN CARDIAC HISTORY: CATHERIZATION: YES SURGERY: PROSTHETIC VALVE: NO PACEMAKER: NO MEASUREMENTS (cm) DIASTOLIC (NORMALS) SYSTOLIC (NORMALS) IVSd 1.0 (0.6-1.2) LA Diam 4.1 (1.9-4.0) LVEF 68% LVIDd 5.6 (3.5-5.7) LVIDs 3.4 (2.0-3.5) %FS 39% LVPWd 1.0 (0.6-1.2) Ao Diam 2.8 (2.0-3.7) 2 DIMENSIONAL ASSESSMENT: RIGHT ATRIUM: NORMAL LEFT ATRIUM: DILATED RIGHT VENTRICLE: NORMAL LEFT VENTRICLE: NORMAL TRICUSPID VALVE: NORMAL MITRAL VALVE: NORMAL PULMONIC VALVE: NORMAL AORTIC VALVE: NORMAL PERICARDIAL EFFUSION: NONE AORTIC ROOT: NORMAL LEFT VENTRICULAR WALL MOTION: NORMAL DOPPLER/COLOR FLOW: NORMAL COMMENTS: NORMAL LEFT VENTRICULAR EJECTION FRACTION. MILDLY DILATED LEFT ATRIUM. OTHERWISE NORMAL TWO DIMENSIONAL ECHOCARDIOGRAM WITH DOPPLER. TECHNOLOGIST: SO EDEN
[2018-04-21 17:47] LABS: Urine Appearance CLEAR; Urine Bilirubin NEGATIVE (NEG); Urine Blood NEGATIVE (NEG); Urine Color YELLOW; Urine Glucose NEGATIVE (NEG); Urine Protein 1+ (NEG); Urine Specific Gravity 1.015 (1.005-1.030); Urine Urobilinogen 0.2 mg/dL (0.2-1.0); Urine pH 5.5 (5.0-7.0)
[2018-04-21 18:05] LABS: Urine Microscopic Reflex ORDER UMIC
[2018-04-21 19:40] LABS: Urine Bacteria <20 /HPF (NONE SEEN); Urine Culture Reflex Order REFLEXED; Urine RBC <5 /HPF (NONE SEEN)
[2018-04-21 20:49] LABS: CKMB Creatine Kinase MB 8.6 ng/mL (0.3-3.6)
[2018-04-21 20:51] LABS: Troponin I 2.63 ng/mL (0.0-0.045)
[2018-04-21] MEDS ORDERED: ENOXAPARIN 100 MG/ML SYR SQ SCH (21:00)
--- NOTE | 2018-04-21 21:51 | CON ---
History Of Present Illness: Mr. Mcfadden has had several stents placed in his heart. [facility]. The pain was intense, felt like his other previous episodes of unstable ang deidre, came to the ER where his enzymes have proved to be abnormal. Indeed, the first troponin was les s than 0.02, the second 0.67, consistent with non-ST elevation ME. The patient has stents in his LAD and right coronary. He is very concerned that he has the wrong sized stent placed in one of his ar teries because he overheard the doctor asking for stent sizes and was told several times by the nurse 'we do not have that,' but after that he has had a cardiac cath and everything looked quite good. T he patient has a history of coronary heart disease, obesity, diabetes, hypertension, dyslipidemia. P resently, he does not seem to be taking any statin drug. I am not sure why the patient would have st opped that with his history of heart disease. He does not have any allergies or drug intolerances. Outpatient Medications: Phentermine, metformin, hydrocodone, isosorbide mononitrate, furosemide, aml odipine, nitroglycerin, losartan, and gabapentin. Social History: He denies tobacco use. Physical Examination: General: 5 feet 9 inches, 290 pounds. HEENT: Normal carotids. No bruit. Lungs: Clear. Cardiac Exam: Within normal limits. Abdomen: Soft. Extremities: Palpable distal pulses. Imaging Data: EKG shows sinus rhythm and is normal. Impression: The patient has unstable coronary heart disease. I have recommended a cardiac cath. He will be n.p.o. after midnight. He has agreed to sign a consent form. He seems to understand the procedure, potential benefits, indications , risks, and agrees to proceed. BRENNON/FRANK Voice ID: [id number] Report ID: [id number]
[2018-04-21] MEDS: GABAPENTIN 300 MG CAP PO SCH (22:11)
[2018-04-21] MEDS: ATORVASTATIN 40 MG TAB PO SCH (22:12)
[2018-04-22 04:34] LABS: Absolute Monocytes 0.8 K/uL (0.1-1.3); Absolute Neutrophil 4.3 K/uL (1.8-8.0); Basophils % 0.4 % (0-1.3); Eosinophils % 1.8 % (0-4.4); Hematocrit 41.4 % (39.6-49.0); Lymphocytes % 36.1 % (15.3-44.8); MPV 9.3 fL (7.6-11.3); Monocytes % 9.2 % (3.3-12.3); RBC Red Blood Cell Count 5.22 M/uL (4.33-5.43)
[2018-04-22 04:36] LABS: Magnesium 2.1 mg/dL (1.8-2.4); Potassium 4.1 mmol/L (3.5-5.1)
[2018-04-22] MEDS ORDERED: NITROGLYCERIN 0.4 MG/TAB SL ONE ×2 (06:34→08:08)
[2018-04-22] MEDS ORDERED: NA CHLORIDE 0.9% 1,000 ML ONE (06:40)
[2018-04-22] MEDS: AMLODIPINE 10 MG TAB PO SCH (06:43)
[2018-04-22] MEDS: ASPIRIN 81 MG CHEWABLE TABLET PO SCH (06:43)
[2018-04-22] MEDS: LOSARTAN POTASSIUM 50 MG TABLET PO SCH (06:44)
[2018-04-22] MEDS ORDERED: MIDAZOLAM HCL 2 MG/2 ML INJ ONE ×2 (07:18→07:46)
[2018-04-22] MEDS ORDERED: HEPA 1000U/500MLS 1,000 UNIT/500 ML BAG IV ONE (07:18)
[2018-04-22] MEDS ORDERED: NA CHLORIDE 0.9% 0 ML ONE (07:19)
[2018-04-22] MEDS ORDERED: ATROPINE SULF 1 MG/10 ML SYR IV ONE (07:19)
[2018-04-22] MEDS ORDERED: FENTANYL CITR 100 MCG/2 ML ONE ×2 (07:19→08:07)
[2018-04-22] MEDS ORDERED: LIDOCAINE 1% MPF 30 ML VIAL ONE (07:21)
[2018-04-22] MEDS: INSULIN -REGULAR HUMAN 50 UNIT/0.5 ML ML SQ SCH ×4 (07:30→21:00)
[2018-04-22] MEDS: FUROSEMIDE 20 MG TABLET PO SCH (07:45)
[2018-04-22] MEDS: GABAPENTIN 300 MG CAP PO SCH ×2 (07:46→22:43)
[2018-04-22] MEDS ORDERED: NA CHLORIDE 0.9% 100 ML IV ONE (07:57)
[2018-04-22] MEDS ORDERED: NITROGLYCERIN 100 MCG/ML SYR (for cath lab use only) IV ONE (08:08)
[2018-04-22] MEDS ORDERED: PRASUGREL (EFFIENT) 10 MG TAB ONE (08:23)
[2018-04-22] MEDS ORDERED: ASPIRIN 325 MG TAB ONE (08:23)
--- NOTE | 2018-04-22 08:46 | EKG ---
Test Date: 2018-04-22 Test Time: 06:21:59 Phone Triage Specialist: LENORE MEASUREMENT RESULTS: Intervals: Rate: 65 MD: 180 QRSD: 98 QT: 426 QTc: 443 [place]: P: 51 MD: 180 QRS: 30 T: 140 INTERPRETIVE STATEMENTS: Normal sinus rhythm T wave abnormality, consider lateral ischemia Abnormal ECG Compared to ECG 04/21/2018 08:31:49 T-wave abnormality now present Possible ischemia now present Electronically Signed On 04-22-18 08:45:44 PATHOLOGY MANAGER by Jesús Paula
[2018-04-22] MEDS ORDERED: ENOXAPARIN 40 MG/0.4 ML SQ SCH (09:00)
[2018-04-22] MEDS ORDERED: ONDANSETRON 4 MG/2 ML VIAL IV PRN (09:57)
[2018-04-22] MEDS ORDERED: ACETAMINOPHEN 325 MG TABLET PO PRN ×2 (10:00→10:03)
[2018-04-22] MEDS ORDERED: NA CHLORIDE 0.9% 1,000 ML IV SCH (10:00)
[2018-04-22] MEDS ORDERED: NITROGLYCERIN 0.4 MG/TAB SL PRN (10:00)
[2018-04-22] MEDS ORDERED: MORPHINE 4 MG/ML SYR IV PRN (10:04)
--- NOTE | 2018-04-22 15:45 | P.PN ---
Subjective Date of Service: 04/22/18 Primary Care Provider: Dr. Walsh; Cardiology-Dr. Downing([facility]) Chief Complaint: Chest pain Subjective: Improving Physical Examination - Vital Signs Temperature: 97.6 F Blood Pressure: 120/58 Pulse: 56 Respirations: 16 Pulse Ox (%): 97 - Physical Exam General: Alert, In no apparent distress, Oriented x3, Cooperative HEENT: Atraumatic Neck: Supple Respiratory: Clear to auscultation bilaterally, Normal air movement Cardiovascular: Normal pulses, Regular rate/rhythm Gastrointestinal: Normal bowel sounds, Soft and benign, Non-distended, No tenderness, No masses, No rebound, No guarding Musculoskeletal: No erythema, No tenderness, No warmth Integumentary: No tenderness/swelling, No erythema, No warmth, No cyanosis Neurological: Normal speech, Normal strength at 5/5 x4 extr, Normal tone, Normal affect - Studies Medications List Reviewed: Yes Assessment & Plan Discharge Plan: Home Plan to discharge in: 24 Hours Physician Review Additional Text: Impression: Chest pain secondary to NSTEMI with history of CAD status post heart catheterization requiring stent Hypertension Diabetes mellitus type 2 Diabetic neuropathy Hyperlipidemia GERD Suspect obstructive sleep apnea Obesity, BMI 42.8 Plan: Chest pain secondary to NSTEMI with history of CAD status post heart catheterization requiring stent: Case discussed with cardiology. Patient had stent placed to Coronary artery. Patient be monitored overnight. Likely discharge home tomorrow. Patient will require aspirin, Plavix, metoprolol and Lipitor. Will continue to monitor. Reassess tomorrow prior to discharge. Hypertension: Continue with the medication. Will monitor and adjust appropriately. Diabetes mellitus type 2: Continue with sliding scale. Diabetic neuropathy: Continue with home medication of Neurontin and hydrocodone. Hyperlipidemia: Continue with Lipitor. LDL 130. GERD: Continue with Protonix. Suspect obstructive sleep apnea: Patient needs to have sleep study done as an outpatient to further evaluate. Obesity, BMI 42.8: Continue to address lifestyle modification education. Will recommend to discontinue Adipex at discharge. Time Spent Managing Pts Care (In Minutes): 55
--- NOTE | 2018-04-22 19:52 | OP ---
Date of Procedure: 04/22/2018 Surgeon: Jesús Paula MD Back Seam Stitcher: Mckenzie Lamar. The patient will be observed overnight and sent home tomorrow morning on aspirin, Plavix, beta-blocke r, and statin. Indications: Admitted to Dr. Latif's service on 04/21/2018 with a non-ST elevation myocardial infar ction. The patient has had a history of coronary stents in the past. He is 57. He was scheduled fo r a heart catheterization with possible intervention today. Description Of Procedure: He was brought to the [facility] [facility] lab[facility] this morning on 04/22/2018, prepped and dra krause in the routine sterile fashion, received 4 mg of Versed and 100 of fentanyl for sedation. A 6-Fr ench sheath introduced in the right common femoral artery successfully. Angio-Seal was used to close the case. Coronary angiography revealed minimal plaquing in the LAD, normal circumflex, right domin ant system. He had a 90% very proximal LAD stenosis and then he had a 70% in-stent restenosis within a proximal LAD stent as well. XB LAD 3.5 with side holes was used. A [place] wire was used to cross the lesion successfully. The lesions in the proximal LAD were pre-dilated with an emerge balloon 3. 0 x 15 with multiple inflation. Following that a 3.0 x 16 synergy stent was deployed at 11 atmospher e with 0% residual. There were no complications. Blood loss was 5 cc. Total conscious sedation was 45 minutes. Postoperative Diagnoses: Coronary artery disease status post successful angioplasty and stent of the left anterior descending. The patient received Angiomax during the procedure. After the procedure he received aspirin and Effi ent. NB/MODL Voice ID: [id number] Report ID: [id number]
[2018-04-22] MEDS: ATORVASTATIN 40 MG TAB PO SCH (22:43)
[2018-04-23 05:09] VITALS: O2SAT 97
[2018-04-23] MEDS: INSULIN -REGULAR HUMAN 50 UNIT/0.5 ML ML SQ SCH ×2 (07:30→11:12)
[2018-04-23] MEDS: FUROSEMIDE 20 MG TABLET PO SCH (08:49)
[2018-04-23] MEDS: AMLODIPINE 10 MG TAB PO SCH (08:50)
[2018-04-23] MEDS: GABAPENTIN 300 MG CAP PO SCH (08:50)
[2018-04-23] MEDS: LOSARTAN POTASSIUM 50 MG TABLET PO SCH (08:51)
[2018-04-23] MEDS: ASPIRIN 81 MG CHEWABLE TABLET PO SCH (08:51)
[2018-04-23] MEDS ORDERED: CLOPIDOGREL 75 MG TABLET PO SCH (09:00)
--- NOTE | 2018-04-23 11:32 | P.DS ---
Admission Date: 04/21/18 Discharge Date: 04/23/18 Primary Care Provider: Dr. Walsh; Cardiology-Dr. Downing([facility]) Disposition: ROUTINE DISCHARGE Discharge Condition: GOOD Reason for Admission: Chest pain Consultations: Cardiology-Dr. Paula Procedures: ECHO: EF 68% LEFT VENTRICULAR WALL MOTION: NORMAL DOPPLER/COLOR FLOW: NORMAL COMMENTS: NORMAL LEFT VENTRICULAR EJECTION FRACTION. MILDLY DILATED LEFT ATRIUM. OTHERWISE NORMAL TWO DIMENSIONAL ECHOCARDIOGRAM WITH DOPPLER Heart Catheterization: Date of Procedure: 04/22/2018 Surgeon: Jesús Paula MD Indications: Admitted to Dr. Latif's service on 04/21/2018 with a non-ST elevation myocardial infarction. The patient has had a history of coronary stents in the past. He is 57. Description Of Procedure: Coronary angiography revealed minimal plaquing in the LAD, normal circumflex, right dominant system. He had a 90% very proximal LAD stenosis and then he had a 70% in-stent restenosis within a proximal LAD stent as well. The lesions in the proximal LAD were pre-dilated with an emerge balloon 3.0 x 15 with multiple inflation. Following that a 3.0 x 16 synergy stent was deployed at 11 atmosphere with 0% residual. There were no complications. Blood loss was 5 cc. Total conscious sedation was 45 minutes. Postoperative Diagnoses: Coronary artery disease status post successful angioplasty and stent of the left anterior descending. Medical Problem List: Chest pain secondary to NSTEMI with history of CAD status post heart catheterization with noted 90% proximal LAD stenosis and 70% in stent restenoses requiring angioplasty and stent to the left anterior descending artery Hypertension Diabetes mellitus type 2 Diabetic neuropathy Hyperlipidemia GERD Suspect obstructive sleep apnea Obesity, BMI 42.8 Brief History of Present Illness: 57-year-old male presented to the emergency room with chest pain. Patient reports chest pain from time to time. He reported increasing chest pain today. Chest pain usually occurs with exertion. It is mainly to the right side of the sternum. It is associated with some shortness of breath and nausea. It has been occurring more frequently. Patient is seen by cardiology at [facility]. He reports having a recent stress test that was abnormal. Patient has history of heart catheterization in June 2017. He had a paint LAD and normal circumflex. Mild plaquing to the RCA was noted with noted 40% stenosis to the distal posterior descending off of the RCA. Patient was to continue with medical management at that time. In the ER patient evaluated. EKG showed no significant ST changes. Troponin less than 0.02. White count 9.8, hemoglobin 15. Sodium 138 potassium 4.0. BUN of 14, creatinine 1.19 with a GFR 76. Glucose 155. Patient was admitted for observation. When I saw the patient ER, he appeared comfortable. Pain improved. Patient takes multiple medications including Norvasc, Lasix, Ranexa, Lipitor, losartan, Neurontin and hydrocodone. Patient with history of diabetes, CAD, hypertension , hyperlipidemia, GERD, and neuropathy. It is been recommended by his electric meter installer to have a sleep study to evaluate for underlying sleep apnea. Hospital Course: Patient presented with chest pain secondary to NSTEMI. Patient with history of CAD. Patient seen and evaluated by Cardiology. Heart catheterization was recommended. Heart catheterization revealed 90% proximal LAD stenosis and 70% InStent restenoses. Patient required angioplasty and stent to the left anterior descending artery. Patient tolerated procedure well. At discharge he is without significant chest pain. At discharge patient will continue with aspirin 81 mg daily, Plavix 75 mg daily, Norvasc 10 mg daily, Lipitor 40 mg daily, losartan 50 mg 1 pill daily, Ranexa 500 mg 1 pill twice daily, and nitroglycerin as needed for chest pain. Recommendation is for the patient follow up with cardiology in 1-2 weeks to follow up this hospitalization. Further adjustment in medication can be done by cardiology. Patient with hypertension. This remained stable in his stay. At discharge he will continue with his medications including Norvasc 10 mg daily and losartan 50 mg daily. Recommend to maintain blood pressures less 150/80. Further adjustment can be done by his PCP or cardiology. Patient has history of diabetes mellitus type 2. This remained stable. At discharge he will continue with metformin 500 mg 1 pill twice daily. Recommend to maintain blood sugars less 140 fasting and less than 200 after meals. Further adjustment and follow-up can be done by his PCP. Patient with hyperlipidemia. LDL 130. New medication includes Lipitor 40 mg daily. Patient with diabetic neuropathy and chronic pain. Patient may continue with gabapentin 600 mg 1 pill twice daily and hydrocodone. Further adjustment in medication can be done by his PCP. Patient likely has underlying obstructive sleep apnea. BMI 42.8. Lifestyle modification education will be provided. Recommend for outpatient sleep study to be done as an outpatient to further address. This can be done with the help of pulmonology. At discharge medications reviewed. Will recommend to discontinue Adipex. Vital Signs/Physical Exam: Temp Pulse Resp BP Pulse Ox 97.1 F 61 18 132/75 95 04/23/18 08:00 04/23/18 08:50 04/23/18 08:00 04/23/18 08:50 04/23/18 08:00 General: Alert, In no apparent distress, Oriented x3, Cooperative HEENT: Atraumatic, Mucous membr. moist/pink Neck: Supple, No Thyromegaly Respiratory: Clear to auscultation bilaterally, Normal air movement Cardiovascular: Normal pulses, Regular rate/rhythm Gastrointestinal: Normal bowel sounds, Soft and benign, Non-distended, No tenderness, No masses, No rebound, No guarding Musculoskeletal: No erythema, No tenderness, No warmth Integumentary: No tenderness/swelling, No erythema, No warmth, No cyanosis Neurological: Normal speech, Normal strength at 5/5 x4 extr, Normal tone, Normal affect Laboratory Data at Discharge: WBC 8.2 K/uL (4.3-10.9) D 04/22/18 03:46 Hgb 13.3 g/dL (13.6-17.9) L 04/22/18 03:46 Hct 41.4 % (39.6-49.0) 04/22/18 03:46 Plt Count 179 K/uL (152-406) D 04/22/18 03:46 PT 12.0 SECONDS (9.5-12.5) 04/21/18 08:30 INR 1.02 04/21/18 08:30 Sodium 139 mmol/L (136-145) 04/22/18 03:46 Potassium 4.1 mmol/L (3.5-5.1) 04/22/18 03:46 BUN 14 mg/dL (7-18) 04/22/18 03:46 Creatinine 1.11 mg/dL (0.55-1.3) 04/22/18 03:46 Glucose 123 mg/dL (74-106) H 04/22/18 03:46 Magnesium 2.1 mg/dL (1.8-2.4) 04/22/18 03:46 Total Bilirubin 0.3 mg/dL (0.2-1.0) 04/21/18 08:30 AST 11 U/L (15-37) L 04/21/18 08:30 ALT 23 U/L (12-78) 04/21/18 08:30 Alkaline Phosphatase 81 U/L (45-117) 04/21/18 08:30 Troponin I 2.63 ng/mL (0.0-0.045) H* D 04/21/18 19:48 Triglycerides 104 mg/dL (<150) 04/22/18 03:46 Cholesterol 199 mg/dL (<200) 04/22/18 03:46 HDL Cholesterol 48 mg/dL (40-60) 04/22/18 03:46 Cholesterol/HDL Ratio 4.15 04/22/18 03:46 Lipase 115 U/L (73-393) 04/21/18 08:30 Home Medications: Amlodipine [Norvasc*] 10 mg PO DAILY 04/21/18 Furosemide [Lasix*] 20 mg PO DAILY 04/21/18 Gabapentin 600 mg PO BID 04/21/18 Hydrocodone Bit/Acetaminophen [Hydrocodon-Acetaminophn 10-325] 1 each PO TID Losartan Potassium [Cozaar*] 50 mg PO DAILY 04/21/18 Metformin ER [Glucophage ER*] 500 mg PO BID 04/21/18 Aspirin Chewable [Aspirin Chewable*] 81 mg PO DAILY #30 tab.chew 04/23/18 Atorvastatin Calcium [Lipitor] 40 mg PO BEDTIME #30 tab 04/23/18 Clopidogrel Bisulfate [Plavix*] 75 mg PO DAILY #30 tablet 04/23/18 Nitroglycerin [Nitrostat*] 0.4 mg SL PRN PRN #30 tab 04/23/18 New Medications: Aspirin Chewable [Aspirin Chewable*] 81 mg PO DAILY #30 tab.chew Atorvastatin Calcium [Lipitor] 40 mg PO BEDTIME #30 tab Clopidogrel Bisulfate [Plavix*] 75 mg PO DAILY #30 tablet Nitroglycerin [Nitrostat*] 0.4 mg SL PRN PRN #30 tab PRN Reason: Pain Scale 2-4 (Mild) Patient Discharge Instructions: 1. Patient will follow up with his PCP in 1 week to follow up this hospitalization. 2. Patient presented with chest pain secondary to NSTEMI. Patient with history of CAD. Patient seen and evaluated by Cardiology. Heart catheterization was recommended. Heart catheterization revealed 90% proximal LAD stenosis and 70% InStent restenoses. Patient required angioplasty and stent to the left anterior descending artery. Patient tolerated procedure well. At discharge he is without significant chest pain. At discharge patient will continue with aspirin 81 mg daily, Plavix 75 mg daily , Norvasc 10 mg daily, Lipitor 40 mg daily, losartan 50 mg 1 pill daily, Ranexa 500 mg 1 pill twice daily, and nitroglycerin as needed for chest pain. Recommendation is for the patient follow up with cardiology in 1-2 weeks to follow up this hospitalization. Further adjustment in medication can be done by cardiology. 3. Patient with hypertension. This remained stable in his stay. At discharge he will continue with his medications including Norvasc 10 mg daily and losartan 50 mg daily. Recommend to maintain blood pressures less 150/80. Further adjustment can be done by his PCP or cardiology. 4. Patient has history of diabetes mellitus type 2. This remained stable. At discharge he will continue with metformin 500 mg 1 pill twice daily. Recommend to maintain blood sugars less 140 fasting and less than 200 after meals. Further adjustment and follow-up can be done by his PCP. 5. Patient with hyperlipidemia. LDL 130. New medication includes Lipitor 40 mg daily. 6. Patient with diabetic neuropathy and chronic pain. Patient may continue with gabapentin 600 mg 1 pill twice daily and hydrocodone. Further adjustment in medication can be done by his PCP. 7. Patient likely has underlying obstructive sleep apnea. BMI 42.8. Lifestyle modification education will be provided. Recommend for outpatient sleep study to be done as an outpatient to further address. This can be done with the help of pulmonology. 8. At discharge medications reviewed. Will recommend to discontinue Adipex. Diet: AHA Activity: Fall precautions Time spent managing pt's care (in minutes): 55
[2018-04-23 14:31] VITALS: BP 140/65; TEMP 97.8
== END 2018-04-23 15:38 | disposition home or self-care (01) | DRG 247 ==
LOC: ER 08:21 → OBSVTOIN 10:03 → ERHOLD 10:03 → 4TH 11:34
PROVIDERS: ADMIT Family Medicine; ATTEND Family Medicine
PROC: 027034Z Dilation of Coronary Artery, One Artery with Drug-eluting Intraluminal Device, Percutaneous Approach (ICD-10-PCS; principal; 2018-04-22)
PROC: 4A023N7 Measurement of Cardiac Sampling and Pressure, Left Heart, Percutaneous Approach (ICD-10-PCS; 2018-04-22)
PROC: B211YZZ Fluoroscopy of Multiple Coronary Arteries using Other Contrast (ICD-10-PCS; 2018-04-22)
DX: I21.4 Non-ST elevation (NSTEMI) myocardial infarction (principal); Z68.41 Body mass index [BMI] 40.0-44.9, adult; I25.10 Atherosclerotic heart disease of native coronary artery without angina pectoris; Z79.84 Long term (current) use of oral hypoglycemic drugs; E78.5 Hyperlipidemia, unspecified; I10 Essential (primary) hypertension; K21.9 Gastro-esophageal reflux disease without esophagitis; G47.33 Obstructive sleep apnea (adult) (pediatric); E66.9 Obesity, unspecified; F41.9 Anxiety disorder, unspecified; E11.42 Type 2 diabetes mellitus with diabetic polyneuropathy
CPT/HCPCS: 36415; 71045; 80048; 80061; 80076; 81003; 81015; 82550; 82553; 82962; 83690; 83735; 83880; 84439; 84443; 84484; 85025; 85347; 85610; 87077; 87086; 87088; 87186; 93005; 93306; 93454; 96372; 96374; 96375; 99285; C1725; C1760; C1877; C1893; C9600; J0583; J1650; J2250; J2405; J3010; J7030

== ENCOUNTER 2018-05-26 08:34 | Inpatient (IN) | payer OTHER ==
--- OUTSIDE RECORDS SUMMARY | 2018-05-26 08:36 | XMS REPORT ---
:1960 [facility] [address] [place] [address] Care Team Providers Name Role Phone Unavailable Unavailable Unavailable Problems This patient has no known problems. Allergies, Adverse Reactions, Alerts This patient has no known allergies or adverse reactions. Medications This patient has no known medications.
--- NOTE | 2018-05-26 09:20 | ER ---
Nurse's Notes [facility] Name: Christo Mcfadden Age: 58 yrs Sex: Male : 1960 Arrival Date: 05/26/2018 Time: 08:[address] Private MD: Femi Walsh E Diagnosis: Chest pain, unspecified;Dyspnea;Essential (primary) hypertension;Type 2 diabetes mellitus Presentation: 05/26 08:42 Presenting complaint: Patient states: Shortness of breath that started yesterday, this sg morning reports the shortness of breath as well as having chest pain and was unable to perform his PT exercises, pt reports nausea but denies vomiting/diarrhea/fever at this time, denies dizziness. Transition of care: patient was not received from another setting of care. Onset of symptoms was May 26, 2018. Risk Assessment: Do you want to hurt yourself or someone else? Patient reports no desire to harm self or others. Initial Sepsis Screen: Does the patient meet any 2 criteria? No. Patient's initial sepsis screen is negative. Does the patient have a suspected source of infection? No. Patient's initial sepsis screen is negative. Care prior to arrival: None. 08:42 Method Of Arrival: Ambulatory sg 08:42 Acuity: JOO 3 sg Historical: - Allergies: 08:45 No Known Allergies; sg - Home Meds: 11:45 amlodipine 10 mg tab once daily [Active]; furosemide 20 mg Oral tab 1 tab once daily sg [Active]; isosorbide mononitrate 30 mg Oral Tb24 1 tab once daily [Active]; Lipitor 20 mg Oral tab 1 tab once daily [Active]; losartan 50 mg Oral tab 1 tab once daily [Active]; Neurontin 300 mg Oral cap twice a day [Active]; [place] 10-325 mg Oral tab 1 tab every 4 hours [Active]; pantoprazole 40 mg Oral TbEC 1 tab once daily [Active]; Ranexa 500 mg Oral Tb12 1 tab 2 times per day [Active]; - PMHx: 08:45 Anxiety; Asthma; benign brain neoplasm; Diabetes - NIDDM; GERD; Hypertension; sg microalbuminuria; Myocardial infarction; PERIPHERAL NEUROPATHY; TIA; - PSHx: 08:45 right knee; cardiac stents x 5; sg - Immunization history:: Adult Immunizations. - Social history:: Smoking status: Patient/guardian denies using tobacco. - Ebola Screening: : Patient negative for fever greater than or equal to 101.5 degrees Fahrenheit, and additional compatible Ebola Virus Disease symptoms Patient denies exposure to infectious person Patient denies travel to an Ebola-affected area in the 21 days before illness onset No symptoms or risks identified at this time. - Family history:: not pertinent. Screenin:49 Abuse screen: Denies threats or abuse. Denies injuries from another. Nutritional sg screening: No deficits noted. Tuberculosis screening: No symptoms or risk factors identified. Never had TB. Fall Risk None identified. Assessment: 08:49 General: Appears in no apparent distress. comfortable, well groomed, well developed, sg well nourished, Behavior is calm, cooperative, appropriate for age. Pain: Complains of pain in chest Pain currently is 3 out of 10 on a pain scale. Quality of pain is described as aching, pressure. Neuro: Level of Consciousness is awake, alert, obeys commands, Oriented to person, place, time, situation, Accounting Administrative Assistant are equal bilaterally Moves all extremities. Full function Speech is normal, Facial symmetry appears normal. Cardiovascular: Reports chest pain, nausea, shortness of breath, Heart tones S1 S2 present Capillary refill is brisk in bilateral fingers Patient's skin is warm and dry. Chest pain is described as mild, quality is pressure. Respiratory: Airway is patent Respiratory effort is even, unlabored, Respiratory pattern is regular, symmetrical. GI: Abdomen is round non-distended, Bowel sounds present X 4 quads. : No signs and/or symptoms were reported regarding the genitourinary system. EENT: No signs and/or symptoms were reported regarding the EENT system. Derm: Skin is intact, is healthy with good turgor, Skin is dry, Skin is normal, Skin temperature is warm. Musculoskeletal: No signs and/or symptoms reported regarding the musculoskeletal system. Vital Signs: 08:45 BP 125 / 79; Pulse 61 MON; Resp 16; Temp 98.4; Pulse Ox 100% on R/A; Pain 6/10; sg 08:48 Weight 131.54 kg; Height 5 ft. 9 in. (175.26 cm); sg 09:00 BP 177 / 88; Pulse 87; Resp 17; Pulse Ox 100% on R/A; Pain 8/10; sg 10:30 BP 146 / 69; Pulse 51; Resp 16; Pulse Ox 100% on R/A; sg 08:48 Body Mass Index 42.83 (131.54 kg, 175.26 cm) sg ED Course: 08:35 Patient arrived in ED. mr 08:35 Femi Walsh MD is Private Physician. mr 08:37 Abelardo Mcfarland, NAHUM is Primary Nurse. bp 08:40 Josiah Prakash MD is Attending Physician. traci 08:43 Triage completed. sg 08:43 Arm band placed on. sg 08:58 XRAY Chest (1 view) In Process Unspecified. EDMS 09:00 Initial lab(s) drawn, by ca, sent to lab. Inserted saline lock: 20 gauge in left sg antecubital area, using aseptic technique. Blood collected. 09:06 EKG done, by sterile preparation technician. reviewed by Josiah Prakash MD. at1 09:19 Rhys Farnk MD is Hospitalizing Provider. traci 09:54 CT Head Brain wo Cont In Process Unspecified. EDMS 11:05 EKG done, by sterile preparation technician. reviewed by Josiah Prakash MD Repeat EKG. at1 Administered Medications: 09:30 Drug: NS 0.9% 1000 ml Route: IV; Rate: 125 ml/hr; Site: left antecubital; sg 09:30 Drug: Aspirin Chewable Tablet 162 mg Route: PO; sg 09:30 Drug: Tylenol 650 mg Route: PO; sg 09:30 Drug: morphine 2 mg Route: IVP; Site: left antecubital; sg 09:35 Drug: Zofran 4 mg Route: IVP; Site: left antecubital; sg 09:37 Drug: morphine 2 mg Route: IVP; Site: left antecubital; sg 10:45 Drug: Lovenox 100 mg Route: Sub-Q; Site: right lower abdomen; sg 10:49 Drug: Brilinta - Ticagrelor 90 mg Route: PO; sg 10:49 Drug: morphine 4 mg Route: IVP; Site: left antecubital; sg 11:25 Drug: predniSONE 40 mg Route: PO; sg Outcome: 09:20 Decision to Hospitalize by Provider. traci 11:47 Patient left the ED. iw Signatures: Dispatcher [employer] EDMS All Ricardo RN RN sg Anderson, Corey, MD MD cha Rivera, Mary mr Williams, Irene, RN RN iw Yuki Hernandez, physician [facility] EKG Tat1 Abelardo Mcfarland, RN RN bp
--- NOTE | 2018-05-26 09:20 | EDPHYS ---
Physician Documentation [facility] Name: Christo Mcfadden Age: 58 yrs Sex: Male : 1960 Arrival Date: 05/26/2018 Time: 08:[address] Private MD: Femi Walsh E ED Physician Josiah Prakash HPI: 05/26 09:16 This 58 yrs old Black Male presents to ER via Ambulatory with complaints of Chest Pain. [facility] 09:16 The patient or guardian reports chest pain that is located primarily in the substernal traci area, anterior chest wall. Onset: 2 day(s) ago. The pain does not radiate. Associated signs and symptoms: Pertinent positives: headache, lightheadedness, shortness of breath. The chest pain is described as a heaviness, a pressure. Modifying factors: The symptoms are alleviated by nothing. the symptoms are aggravated by nothing. Severity of pain: At its worst the pain was mild in the emergency department the pain is unchanged. The patient has experienced similar episodes in the past, multiple times. Historical: - Allergies: 08:45 No Known Allergies; sg - Home Meds: 11:45 amlodipine 10 mg tab once daily [Active]; furosemide 20 mg Oral tab 1 tab once daily sg [Active]; isosorbide mononitrate 30 mg Oral Tb24 1 tab once daily [Active]; Lipitor 20 mg Oral tab 1 tab once daily [Active]; losartan 50 mg Oral tab 1 tab once daily [Active]; Neurontin 300 mg Oral cap twice a day [Active]; [place] 10-325 mg Oral tab 1 tab every 4 hours [Active]; pantoprazole 40 mg Oral TbEC 1 tab once daily [Active]; Ranexa 500 mg Oral Tb12 1 tab 2 times per day [Active]; - PMHx: 08:45 Anxiety; Asthma; benign brain neoplasm; Diabetes - NIDDM; GERD; Hypertension; sg microalbuminuria; Myocardial infarction; PERIPHERAL NEUROPATHY; TIA; - PSHx: 08:45 right knee; cardiac stents x 5; sg - Immunization history:: Adult Immunizations. - Social history:: Smoking status: Patient/guardian denies using tobacco. - Ebola Screening: : Patient negative for fever greater than or equal to 101.5 degrees Fahrenheit, and additional compatible Ebola Virus Disease symptoms Patient denies exposure to infectious person Patient denies travel to an Ebola-affected area in the 21 days before illness onset No symptoms or risks identified at this time. - Family history:: not pertinent. ROS: 09:16 Constitutional: Negative for fever, chills, and weight loss, Eyes: Negative for injury, traci pain, redness, and discharge, ENT: Negative for injury, pain, and discharge, Neck: Negative for injury, pain, and swelling, Abdomen/GI: Negative for abdominal pain, nausea, vomiting, diarrhea, and constipation, Back: Negative for injury and pain, : Negative for injury, bleeding, discharge, and swelling, MS/Extremity: Negative for injury and deformity, Skin: Negative for injury, rash, and discoloration, Neuro: Negative for headache, weakness, numbness, tingling, and seizure, Psych: Negative for depression, anxiety, suicide ideation, homicidal ideation, and hallucinations, Allergy/Immunology: Negative for hives, rash, and allergies, Endocrine: Negative for neck swelling, polydipsia, polyuria, polyphagia, and marked weight changes, Hematologic/Lymphatic: Negative for swollen nodes, abnormal bleeding, and unusual bruising. 09:16 Cardiovascular: Positive for chest pain. 09:16 Respiratory: Positive for shortness of breath. Exam: 09:16 Constitutional: This is a well developed, well nourished patient who is awake, alert, traci and in no acute distress. Head/Face: Normocephalic, atraumatic. Eyes: Pupils equal round and reactive to light, extra-ocular motions intact. Lids and lashes normal. Conjunctiva and sclera are non-icteric and not injected. Cornea within normal limits. Periorbital areas with no swelling, redness, or edema. ENT: Nares patent. No nasal discharge, no septal abnormalities noted. Tympanic membranes are normal and external auditory canals are clear. Oropharynx with no redness, swelling, or masses, exudates, or evidence of obstruction, uvula midline. Mucous membranes moist. Neck: Trachea midline, no thyromegaly or masses palpated, and no cervical lymphadenopathy. Supple, full range of motion without nuchal rigidity, or vertebral point tenderness. No Meningismus. Chest/axilla: Normal chest wall appearance and motion. Nontender with no deformity. No lesions are appreciated. Cardiovascular: Regular rate and rhythm with a normal S1 and S2. No gallops, murmurs, or rubs. Normal PMI, no JVD. No pulse deficits. Respiratory: Lungs have equal breath sounds bilaterally, clear to auscultation and percussion. No rales, rhonchi or wheezes noted. No increased work of breathing, no retractions or nasal flaring. Abdomen/GI: Soft, non-tender, with normal bowel sounds. No distension or tympany. No guarding or rebound. No evidence of tenderness throughout. Back: No spinal tenderness. No costovertebral tenderness. Full range of motion. Male : Normal genitalia with no discharge or lesions. Skin: Warm, dry with normal turgor. Normal color with no rashes, no lesions, and no evidence of cellulitis. MS/ Extremity: Pulses equal, no cyanosis. Neurovascular intact. Full, normal range of motion. Neuro: Awake and alert, GCS 15, oriented to person, place, time, and situation. Cranial nerves II-XII grossly intact. Motor strength 5/5 in all extremities. Sensory grossly intact. Cerebellar exam normal. Normal gait. Psych: Awake, alert, with orientation to person, place and time. Behavior, mood, and affect are within normal limits. 09:22 Musculoskeletal/extremity: DVT Exam: No signs of deep vein thrombosis. no pain, no traci swelling, no tenderness, negative Homans' sign noted on exam, no appreciated bluish discoloration, no erythema, no increased warmth. Vital Signs: 08:45 BP 125 / 79; Pulse 61 MON; Resp 16; Temp 98.4; Pulse Ox 100% on R/A; Pain 6/10; sg 08:48 Weight 131.54 kg; Height 5 ft. 9 in. (175.26 cm); sg 09:00 BP 177 / 88; Pulse 87; Resp 17; Pulse Ox 100% on R/A; Pain 8/10; sg 10:30 BP 146 / 69; Pulse 51; Resp 16; Pulse Ox 100% on R/A; sg 08:48 Body Mass Index 42.83 (131.54 kg, 175.26 cm) MDM: 08:40 Patient medically screened. [facility] 09:21 Data reviewed: vital signs, nurses notes, lab test result(s), EKG, radiologic studies, [facility] plain films. 05/26 08:38 Order name: Basic Metabolic Panel; Complete Time: 10:12 bp 03/25 08:38 Order name: CBC with Diff; Complete Time: 09:38 bp 05/26 08:38 Order name: LFT's; Complete Time: 10:12 bp 05/26 08:38 Order name: Magnesium; Complete Time: 10:12 bp 05/26 08:38 Order name: NT PRO-BNP; Complete Time: 10:12 bp 05/26 08:38 Order name: PT-INR; Complete Time: 10:00 bp 05/26 08:38 Order name: Troponin (emerg Dept Use Only); Complete Time: 10:12 bp 05/26 08:38 Order name: XRAY Chest (1 view); Complete Time: 09:38 bp 05/26 08:41 Order name: Lipase; Complete Time: 09:38 traci 05/26 09:38 Order name: CT Head Brain wo Cont; Complete Time: 10:12 traci 05/26 10:58 Order name: CRP sg 05/26 10:58 Order name: ESR 05/26 11:15 Order name: C-Reactive Protein EDMS 05/26 11:30 Order name: Sedimentation Rate, [place] EDWV 05/26 08:38 Order name: EKG; Complete Time: 08:39 bp 05/26 08:38 Order name: Cardiac monitoring; Complete Time: 09:10 bp 05/26 08:38 Order name: EKG - Nurse/Tech; Complete Time: 09:11 bp 05/26 08:38 Order name: IV Saline Lock; Complete Time: 09:10 bp 05/26 08:38 Order name: Labs collected and sent; Complete Time: 09:10 bp 05/26 10:41 Order name: EKG; Complete Time: 10:41 sg 05/26 08:38 Order name: O2 Per Protocol; Complete Time: 09:10 bp 05/26 08:38 Order name: O2 Sat Monitoring; Complete Time: 09:10 bp Administered Medications: 09:30 Drug: NS 0.9% 1000 ml Route: IV; Rate: 125 ml/hr; Site: left antecubital; sg 09:30 Drug: Aspirin Chewable Tablet 162 mg Route: PO; sg 09:30 Drug: Tylenol 650 mg Route: PO; sg 09:30 Drug: morphine 2 mg Route: IVP; Site: left antecubital; sg 09:35 Drug: Zofran 4 mg Route: IVP; Site: left antecubital; sg 09:37 Drug: morphine 2 mg Route: IVP; Site: left antecubital; sg 10:45 Drug: Lovenox 100 mg Route: Sub-Q; Site: right lower abdomen; sg 10:49 Drug: Brilinta - Ticagrelor 90 mg Route: PO; sg 10:49 Drug: morphine 4 mg Route: IVP; Site: left antecubital; sg 11:25 Drug: predniSONE 40 mg Route: PO; sg Disposition: 05/26/18 09:20 Hospitalization ordered by Rhys Frank for Observation. Preliminary diagnosis are Chest pain, unspecified, Dyspnea, Essential (primary) hypertension, Type 2 diabetes mellitus. - Bed requested for Telemetry/MedSurg (observation). - Status is Observation. iw - Condition is Fair. - Problem is new. - Symptoms have improved. UTI on Admission? No Signatures: Dispatcher [employer] EDMS Lena Burns Steven, RN RN Josiah Prakash MD MD cha Williams, Irene, RN RN Abelardo Mcfarland RN RN bp Corrections: (The following items were deleted from the chart) 11:15 09:20 Hospitalization Ordered by Rhys Frank MD for Observation. Preliminary diagnosis bd is Chest pain, unspecified; Dyspnea; Essential (primary) hypertension; Type 2 diabetes mellitus. Bed requested for Telemetry/MedSurg (observation). Status is Observation. Condition is Fair. Problem is new. Symptoms have improved. UTI on Admission? No. traci 11:47 11:15 05/26/2018 09:20 Hospitalization Ordered by Rhys Frank MD for Observation. iw Preliminary diagnosis is Chest pain, unspecified; Dyspnea; Essential (primary) hypertension; Type 2 diabetes mellitus. Bed requested for Telemetry/MedSurg (observation). Status is Observation. Condition is Fair. Problem is new. Symptoms have improved. UTI on Admission? No. bd
[2018-05-26] MEDS ORDERED: ASPIRIN 81 MG CHEWABLE TABLET ONE (09:27)
[2018-05-26] MEDS ORDERED: ACETAMINOPHEN 325 MG TABLET ONE (09:27)
[2018-05-26] MEDS ORDERED: NA CHLORIDE 0.9% 1,000 ML ONE (09:27)
[2018-05-26] MEDS ORDERED: MORPHINE 4 MG/ML SYR ONE ×2 (09:31→10:55)
[2018-05-26] MEDS ORDERED: ONDANSETRON 4 MG/2 ML VIAL ONE (09:31)
--- NOTE | 2018-05-26 09:31 | RAD REPORT ---
EXAM DESCRIPTION: RAD - Chest Single View - 05/26/2018 8:58 am CLINICAL HISTORY: Chest pain COMPARISON: April 21 TECHNIQUE: AP portable chest image was obtained 0854 hours . FINDINGS: Lungs are clear. Heart and vasculature are normal. No measurable pleural effusion and no p neumothorax. No acute bony abnormality seen. No acute aortic findings suspected. IMPRESSION: No acute cardiopulmonary process. No significant interval change.
[2018-05-26 09:32] LABS: Absolute Lymphocytes (CBC) 2.9 K/uL (0.7-4.9); Absolute Monocytes 0.9 K/uL (0.1-1.3); Basophils % 0.5 % (0-1.3); Eosinophils % 1.7 % (0-4.4); Hematocrit 45.2 % (39.6-49.0); Lymphocytes % 32.4 % (15.3-44.8); MPV 9.2 fL (7.6-11.3); Monocytes % 9.8 % (3.3-12.3)
[2018-05-26] MEDS ORDERED: ENOXAPARIN 100 MG/ML SYR SQ ONE (09:32)
[2018-05-26 09:38] LABS: Protime INR 0.98
[2018-05-26 10:08] LABS: ALT/SGPT 21 U/L (12-78); AST/SGOT 11 U/L (15-37); Albumin 3.4 g/dL (3.4-5.0); Alkaline Phosphatase 82 U/L (45-117); BUN Blood Urea Nitrogen 16 mg/dL (7-18); Bicarbonate 27 mmol/L (21-32); Bilirubin Direct < 0.1 mg/dL (0-0.2); Bilirubin Total 0.2 mg/dL (0.2-1.0); Glucose Level 134 mg/dL (74-106); Magnesium 2.1 mg/dL (1.8-2.4); NT PRO-BNP 44 pg/mL (<125); Potassium 4.4 mmol/L (3.5-5.1); Protein, Total 7.7 g/dL (6.4-8.2); Sodium Level 140 mmol/L (136-145); Troponin (Emerg Dept Use Only) < 0.02 ng/mL (0.0-0.045)
--- NOTE | 2018-05-26 10:08 | RAD REPORT ---
EXAM DESCRIPTION: CT - Head Brain Wo Cont - 05/26/2018 9:53 am CLINICAL HISTORY: Dizziness, headache COMPARISON: April 2013 TECHNIQUE: Axial 5 mm thick images of the head were obtained without IV contrast. All CT scans are performed using dose optimization technique as appropriate and may include automated exposure control or mA/KV adjustment according to patient size. FINDINGS: No intracranial hemorrhage, new mass, edema or shift of mid-line structures. No acute infa rction changes seen. No abnormal extra-axial fluid collections. Ventricles are normal. The densely ca lcified mass along the inner table right frontal bone has not change from 2014. Mastoid air cells and visualized portions of the paranasal sinuses are clear. No acute bony findings. IMPRESSION: Negative non-contrast CT head examination for acute finding.
[2018-05-26] MEDS ORDERED: NITROGLYCERIN 0.4 MG/TAB SL PRN (10:31)
[2018-05-26] MEDS: CLOPIDOGREL 75 MG TABLET PO SCH (10:31)
[2018-05-26] MEDS ORDERED: MORPHINE 2 MG/ML SYR IV PRN (10:31)
[2018-05-26] MEDS ORDERED: ACETAMINOPHEN 500 MG TAB PO PRN (10:31)
[2018-05-26] MEDS: predniSONE 20 MG TAB PO SCH ×2 (10:46→20:45)
[2018-05-26] MEDS ORDERED: TICAGRELOR 90 MG TABLET PO ONE (10:55)
[2018-05-26] MEDS ORDERED: predniSONE 20 MG TAB ONE (11:25)
[2018-05-26] MEDS ORDERED: INSULIN -REGULAR HUMAN 50 UNIT/0.5 ML ML SQ SCH (12:00)
[2018-05-26 13:29] VITALS: BMI 41.3
--- NOTE | 2018-05-26 14:40 | CON ---
History Of Present Illness: Mr. Mcfadden is 58. He came to the hospital with chest pain, reminds him of what he had in April of this year. In April we did a heart catheterization and he required stents of his LAD. It was within a just distal to an LAD stent that he had previously. His other st ents looked fine. The angiographic result was excellent that was in April 22, 2018, so roughly 30 days ago. As he comes in with this chest pain, there are no accompanying EKG changes or enzyme banegas ges to suggest that he has restenoses or reocclusion. He is comfortable right now. He has a history of CAD, history of intracoronary stents. Allergies: HE HAS NO KNOWN DRUG ALLERGIES. Social History: He does not use tobacco. Medications: He has been taking his medications, which we prescribed a month ago. I know we prescri bed Lipitor, aspirin and Plavix. The other medicines have not been entered anywhere. Physical Examination: General: He is alert, obese, oriented, not in distress. Lungs: Clear. Heart: Unremarkable. EKG within normal limits. Abdomen: Soft. Extremities: Normal. Diagnostic Studies: CAT scan of the head is normal. Recommendation: I would recommend that Mr. Mcfadden have a cardiac cath, tomorrow possibly another elbert nt. In the past, he had a radial artery catheterization done. His right radial artery does not have a palpable pulse and I am going to recommend, we use the left femoral artery to do the heart cath. BRENNON/FRANK Voice ID: [id number] Report ID: [id number]
[2018-05-26] MEDS: INSULIN -REGULAR HUMAN 50 UNIT/0.5 ML ML SQ SCH ×2 (16:30→21:00)
--- NOTE | 2018-05-26 17:29 | EKG ---
Test Date: 2018-05-26 Test Time: 10:48:03 Group Burner Machine: ESTELA MEASUREMENT RESULTS: Intervals: Rate: 52 NH: 152 QRSD: 88 QT: 408 QTc: 379 [place]: P: 28 NH: 152 QRS: 31 T: 26 INTERPRETIVE STATEMENTS: Sinus bradycardia Otherwise normal ECG Compared to ECG 05/26/2018 08:47:37 No significant changes Electronically Signed On 05-26-18 17:27:13 CDT by Faisal German
--- NOTE | 2018-05-26 17:30 | EKG ---
Test Date: 2018-05-26 Test Time: 08:47:37 Police Liaison: ESTELA MEASUREMENT RESULTS: Intervals: Rate: 54 MO: 166 QRSD: 92 QT: 398 QTc: 377 [place]: P: 61 MO: 166 QRS: 34 T: 18 INTERPRETIVE STATEMENTS: Sinus bradycardia Otherwise normal ECG Compared to ECG 04/22/2018 06:21:59 Sinus rhythm no longer present T-wave abnormality no longer present Possible ischemia no longer present Electronically Signed On 05-26-18 17:27:48 CDT by Faisal German
[2018-05-26] MEDS: ENOXAPARIN 100 MG/ML SYR SQ SCH (20:43)
[2018-05-26] MEDS: ENOXAPARIN 30 MG/0.3 ML SQ SCH (20:44)
[2018-05-26] MEDS: METOPROLOL TAR 25 MG TAB PO SCH (20:44)
[2018-05-26] MEDS: GABAPENTIN 300 MG CAP PO SCH (20:46)
[2018-05-26] MEDS ORDERED: ATORVASTATIN 40 MG TAB PO SCH (21:00)
[2018-05-26] MEDS ORDERED: HYDROCODONE/APAP 10/325 TAB PO PRN (21:00)
--- NOTE | 2018-05-26 21:40 | HP ---
Date of Admission: 05/26/2018 Consultants: Dr. German with Cardiology. Primary Care Physician: Dr. Walsh Chief Complaint: Chest pain and temporal headache. History Of Present Illness: The patient is a 58-year-old male who was recently discharged from the hospital in April for cardiac catheterization and chest pain. The patient had in-stent stenosis of his LAD and had angioplasty and another stent placed. The patient has seen Cardiology since then, has been doing well. Has been taking his medications appropriately without missing any doses. The patient was in his usual state of health until day of admission when the patient was performing his PT exercises, doing sit-ups and had sudden onset of chest pain, shortness of breath. The patient felt that this was similar to when he had his chest pain on previous visit. The patient's symptoms were constant, moderate, progressively worsening. Pain was not radiating. It was also associated with headaches on the yazidi side. The patient denies any blurry vision or loss of vision. No other neurological symptoms. No fevers, chills, cough. The patient did report some nausea, but no vomiting, diaphoresis or palpitations. The patient came into the ER for further evaluation. In the ER, his initial workup was negative. Troponin and EKG do no show any acute changes. The patient was referred for admission. When seen in the ER, he was awake, alert, oriented x3, stating that the chest pain had improved. So far has received aspirin, morphine, and full-dose of Lovenox. Past Medical History: Coronary artery disease status post stents with recent angiography in April with in-stent stenosis, hypertension, history of TIA, diabetes mellitus type 2, hyperlipidemia, diabetic neuropathy, GERD, and obesity. Past Surgical History: Right knee surgery, cardiac stents. Allergies: NO KNOWN DRUG ALLERGIES. Medications: List reviewed. Social History: The patient is . Denies any tobacco use or alcohol use. No illicit drug use. Family History: Father had heart disease and hypertension. Brother also had heart disease. Review of Systems: An 11-point system reviewed, negative except as per HPI. Physical Examination: Vital Signs: Temperature 98.4, blood pressure 125/79, pulse 61, respirations 16 , O2 100% on room air. BMI is 42.8. General: Awake, alert, oriented x3. Some mild distress due to pain. Elderly male. HEENT: Normocephalic, atraumatic. PERRLA. EOMI. Moist mucous membranes. Oropharynx is clear. Conjunctivae anicteric. The patient does have some tenderness to palpation in the left yazidi area. Neck: Supple. Trachea midline. No JVD. CV: S1, S2. Regular rate and rhythm. Peripheral pulses present. No murmurs. Respiratory: Clear to auscultation bilaterally. No wheezing or stridor. No use of accessory muscles. Gastrointestinal: Abdomen is soft, nontender, nondistended. Positive bowel sounds. No guarding or rigidity. Extremities: No clubbing, cyanosis, or edema. No calf tenderness. Neuro: Cranial nerves 2-12 intact grossly. No focal neurological deficits. Speech is normal. Skin: No rashes. Normal skin turgor. Psych: Mood is okay. Affect is full. Insight and judgment are good. Laboratory Data: Sodium 140, potassium 4.4, chloride 107, CO2 27, BUN 16, creatinine 1.12, glucose 134, calcium 9, magnesium 2.1, AST 11, ALT 21. Troponin less than 0.02. Lipase 135. WBC 9, H and H 14.7 and 45.2, platelets 214. INR 0.98. EKG shows sinus bradycardia. Chest x-ray personally reviewed, shows no cardiopulmonary process. No interval change. CT scan of the head shows no acute findings. The densely calcified mass along the inner table right frontal bone has not changed from 2014. Assessment And Plan: A 58-year-old male with: 1. Unstable angina. The patient had recent stent thrombosis and had a cardiac catheterization on April 23. The patient has been faithful with his Plavix and aspirin. We will start on chest pain guidelines and the patient has already received full-dose Lovenox. Dr. German has been consulted. Initial cardiac workup has been negative including troponin and EKG. We will obtain serial cardiac enzymes. Monitor for signs of chest pain. We will use morphine and nitroglycerin p.r.n. The patient may need to have his blood thinner changed. 2. Left temporal headache and pain. Possibility of temporal arteritis is present. The patient does not have any visual loss. We will start on oral steroids. We will obtain ESR, CRP. LFTs are normal. Platelets are also normal. The patient may need ultrasonography or temporal artery biopsy. We will assess response to steroids. 3. Morbid obesity. BMI greater than 40. 4. Essential hypertension, stable. We will resume home medications as appropriate. 5. Diabetes mellitus type 2 [id number] with hyperglycemia. We will start on sliding scale insulin and monitor Accu-Cheks. 6. Hyperlipidemia. Continue statin. Plan: We will admit the patient to Med-Surg, place as observation. ADDENDUM: AXEL GUZMÁN/FRANK Voice ID: [id number] [facility] CENTERKeyonna
[2018-05-27 04:28] LABS: Absolute Lymphocytes (CBC) 1.6 K/uL (0.7-4.9); Absolute Monocytes 0.3 K/uL (0.1-1.3); Absolute Neutrophil 11.3 K/uL (1.8-8.0); Basophils % 0.3 % (0-1.3); Eosinophils % 0.1 % (0-4.4); Hematocrit 41.5 % (39.6-49.0); MPV 9.3 fL (7.6-11.3); Monocytes % 2.1 % (3.3-12.3)
[2018-05-27 04:41] LABS: BUN Blood Urea Nitrogen 14 mg/dL (7-18); Bicarbonate 27 mmol/L (21-32); Glucose Level 166 mg/dL (74-106); HDL Cholesterol 53 mg/dL (40-60); LDL Cholesterol, Calculated 113 (<130); Potassium 4.5 mmol/L (3.5-5.1); Sodium Level 140 mmol/L (136-145)
[2018-05-27 05:20] LABS: Blood Morphology Comment NOT SEEN (NOT SEEN); Platelet Estimate ADEQ
[2018-05-27] MEDS: INSULIN -REGULAR HUMAN 50 UNIT/0.5 ML ML SQ SCH ×3 (07:30→16:30)
[2018-05-27] MEDS ORDERED: NA CHLORIDE 0.9% 500 ML ONE (08:37)
[2018-05-27] MEDS: CLOPIDOGREL 75 MG TABLET PO SCH (09:00)
[2018-05-27] MEDS ORDERED: ASPIRIN EC 81 MG TAB PO SCH (09:00)
[2018-05-27] MEDS ORDERED: ENOXAPARIN 40 MG/0.4 ML SQ SCH (09:00)
[2018-05-27] MEDS: METOPROLOL TAR 25 MG TAB PO SCH (09:00)
[2018-05-27] MEDS ORDERED: AMLODIPINE 10 MG TAB PO SCH (09:00)
[2018-05-27] MEDS ORDERED: LOSARTAN POTASSIUM 50 MG TABLET PO SCH (09:00)
[2018-05-27] MEDS: ENOXAPARIN 100 MG/ML SYR SQ SCH (09:00)
[2018-05-27] MEDS: ENOXAPARIN 30 MG/0.3 ML SQ SCH (09:00)
[2018-05-27] MEDS: GABAPENTIN 300 MG CAP PO SCH (09:00)
[2018-05-27] MEDS ORDERED: NA CHLORIDE 0.9% 0 ML ONE (10:13)
[2018-05-27] MEDS ORDERED: ATROPINE SULF 1 MG/10 ML SYR IV ONE (10:13)
[2018-05-27] MEDS ORDERED: MIDAZOLAM HCL 2 MG/2 ML INJ ONE ×2 (10:13→10:18)
[2018-05-27] MEDS ORDERED: FENTANYL CITR 100 MCG/2 ML ONE (10:13)
[2018-05-27] MEDS ORDERED: HEPA 1000U/500MLS 2,000 UNIT/1,000 ML BAG IV ONE (10:47)
[2018-05-27 12:00] VITALS: O2SAT 99
[2018-05-27] MEDS ORDERED: GLUCAGON 1 MG/VIAL IM PRN (14:39)
[2018-05-27] MEDS ORDERED: D50W 25 GM/50 ML SYRINGE IV PRN (14:39)
--- NOTE | 2018-05-27 16:05 | P.DS ---
Admission Date: 05/26/18 Discharge Date: 05/27/18 Discharge Condition: GOOD Consultations: Cardiology Procedures: Cardiac Cath - Problems (1) Chest pain Onset Date: 06/17/14 Current Visit: No Status: Acute (2) Hypertension Onset Date: 04/22/18 Current Visit: No Status: Chronic Qualifiers: Hypertension type: essential hypertension Qualified Code(s): I10 - Essential (primary) hypertension Brief History of Present Illness: The patient is a 58-year-old male who was recently discharged from the hospital in April for cardiac catheterization and chest pain. The patient had in- stent stenosis of his LAD and had angioplasty and another stent placed. The patient has seen Cardiology since then, has been doing well. Has been taking his medications appropriately without missing any doses. The patient was in his usual state of health until day of admission when the patient was performing his PT exercises, doing sit-ups and had sudden onset of chest pain, shortness of breath. The patient felt that this was similar to when he had his chest pain on previous visit. The patient's symptoms were constant, moderate, progressively worsening. Pain was not radiating. It was also associated with headaches on the anglican side. The patient denies any blurry vision or loss of vision. No other neurological symptoms. No fevers, chills, cough. The patient did report some nausea, but no vomiting, diaphoresis or palpitations. The patient came into the ER for further evaluation. In the ER, his initial workup was negative. Troponin and EKG do no show any acute changes. The patient was referred for admission. When seen in the ER, he was awake, alert, oriented x3, stating that the chest pain had improved. So far has received aspirin, morphine, and full-dose of Lovenox. Hospital Course: Overall during the hospital stay patient remained stable Patient was initially admitted to the hospital for unstable angina. Troponin initially was negative. EKG was within normal limits. Troponin x2 was elevated. Cardiology was consulted. Cardiology did a cardiac catheterization which was within normal limits with no stenosis noted. At the time cardiology recommended the patient can be discharged home under stable condition was too asked to follow up with primary care provider in about 1-2 days to get an ultrasound of the abdominal done outpatient. Cardiology did not think that the troponin elevation was secondary to coronary artery disease. Patient also had concerning arthritis. ESR was done which was within normal limits. Steroids were stopped here in hospital. Patient's headache did resolve after the cardiac catheterization. Vital Signs/Physical Exam: Temp Pulse Resp BP Pulse Ox 97.3 F 60 16 113/54 L 98 05/27/18 11:00 05/27/18 11:59 05/27/18 11:59 05/27/18 11:59 05/27/18 08:00 General: Alert, In no apparent distress HEENT: Atraumatic, PERRLA, EOMI Neck: Supple, JVD not distended Respiratory: Clear to auscultation bilaterally, Normal air movement Cardiovascular: Regular rate/rhythm, Normal S1 S2 Gastrointestinal: Normal bowel sounds, No tenderness Musculoskeletal: No tenderness Integumentary: No rashes Neurological: Normal speech, Normal tone, Normal affect Lymphatics: No axilla or inguinal lymphadenopathy Laboratory Data at Discharge: WBC 13.3 K/uL (4.3-10.9) H D 05/27/18 03:25 Hgb 13.3 g/dL (13.6-17.9) L 05/27/18 03:25 Hct 41.5 % (39.6-49.0) 05/27/18 03:25 Plt Count 199 K/uL (152-406) 05/27/18 03:25 PT 11.6 SECONDS (9.5-12.5) 05/26/18 09:00 INR 0.98 05/26/18 09:00 Sodium 140 mmol/L (136-145) 05/27/18 03:25 Potassium 4.5 mmol/L (3.5-5.1) 05/27/18 03:25 BUN 14 mg/dL (7-18) 05/27/18 03:25 Creatinine 1.00 mg/dL (0.55-1.3) 05/27/18 03:25 Glucose 166 mg/dL (74-106) H 05/27/18 03:25 Magnesium 2.1 mg/dL (1.8-2.4) 05/26/18 09:00 Total Bilirubin 0.2 mg/dL (0.2-1.0) 05/26/18 09:00 AST 11 U/L (15-37) L 05/26/18 09:00 ALT 21 U/L (12-78) 05/26/18 09:00 Alkaline Phosphatase 82 U/L (45-117) 05/26/18 09:00 Troponin I 0.97 ng/mL (0.0-0.045) H* 05/26/18 20:22 Triglycerides 73 mg/dL (<150) 05/27/18 03:25 Cholesterol 181 mg/dL (<200) 05/27/18 03:25 HDL Cholesterol 53 mg/dL (40-60) 05/27/18 03:25 Cholesterol/HDL Ratio 3.42 05/27/18 03:25 Lipase 135 U/L (73-393) 05/26/18 09:00 Home Medications: Amlodipine [Norvasc*] 10 mg PO DAILY 04/21/18 Gabapentin 600 mg PO BID 04/21/18 Hydrocodone Bit/Acetaminophen [Hydrocodon-Acetaminophn 10-325] 1 each PO TID PRN 04/21/18 Losartan Potassium [Cozaar*] 50 mg PO DAILY 04/21/18 Metformin ER [Glucophage ER*] 500 mg PO BID 04/21/18 Aspirin Chewable [Aspirin Chewable*] 81 mg PO DAILY #30 tab.chew 04/23/18 Atorvastatin Calcium [Lipitor] 40 mg PO BEDTIME #30 tab 04/23/18 Clopidogrel Bisulfate [Plavix*] 75 mg PO DAILY #30 tablet 04/23/18 Nitroglycerin [Nitrostat*] 0.4 mg SL PRN PRN #30 tab 04/23/18 Phentermine HCl 37.5 mg PO DAILY 05/26/18 Ticagrelor [Brilinta*] 90 mg PO BID 05/26/18 Patient Discharge Instructions: Please follow with primary care doctor and cardiology in 1-2 days post discharge. You will need to get outpatient abdominal ultrasound to rule out any gallbladder disease causing you to have is epigastric chest pain. This could be done outpatient with the primary care doctor. Diet: Regular Activity: Ad nicole Followup: Femi Walsh MD [Primary Care Provider] - 1-2 Days (Call to schedule an appointment to set up for an abdominal ultrasound to rule out gallbladder disease. ) Faisal German MD [ACTIVE - CAN ADMIT] - 1-2 Weeks (Call to schedule an appointment. )
[2018-05-27 17:57] VITALS: BP 129/62; TEMP 97.9
--- NOTE | 2018-05-27 18:39 | RAD REPORT ---
EXAM DESCRIPTION: US - Abdomen Exam Limited - 05/27/2018 6:32 pm CLINICAL HISTORY: Abdominal pain. COMPARISON: None. FINDINGS: The gallbladder wall is not thickened. A gallstone is not seen. The biliary tree is normal caliber. IMPRESSION: Unremarkable gallbladder ultrasound.
--- NOTE | 2018-05-27 19:14 | OP ---
Surgeon: Faisal German MD Additional Attending Physician: Dr. May. Procedures: Left heart catheterization with coronary and left ventricular angiography. Procedure Findings: The patient had an LAD stent placed many years ago, it was a redo stent with in- stent restenoses. A new stent was placed in April 2018. That stent is widely patent. There is n o stenosis there, nor is there any stenosis in any of his coronary arteries. His left ventricular ej ection fraction is normal. Segmental wall motion normal. Left ventricular end-diastolic pressure 14 . All the other pressures were normal. No gradient on pullback, and the impression is he has noncor onary noncardiac chest pain. Procedure In Detail: The patient was brought to the cardiac labeling specialist in a fasting state, sedated wit h Versed and fentanyl. The left femoral approach was used. His right radial was absent because of a previous radial cardiac cath attempt. His right femoral had been used a month ago, sealed with an A ngio-Seal device, so we used the left femoral. The area was numbed with lidocaine, entered with an 1 8-gauge needle, cannulated with a short J-wire and a 4-Mauritian sheath was placed into the left common femoral artery. We angiogram the left coronary with a 4-Mauritian JL4, the right coronary with a 4-Fren ch 3DRC, and the left ventricle with a 4-Mauritian angled pigtail. At the end of the procedure, cathete rs were withdrawn over a wire. A sheath shot was done. Adequate anatomy was seen, and we decided to close the arteriotomy using Angio-Seal. This was successful. There were no complications from the procedure. Estimated Blood Loss: 10 cc. Building Equipment Inspector: Yg Johnston. BRENNON/FRANK Voice ID: [id number] Report ID: [id number]
[2018-05-27 19:44] LABS: Urine Appearance CLEAR; Urine Bilirubin NEGATIVE (NEG); Urine Blood NEGATIVE (NEG); Urine Color YELLOW; Urine Glucose 3+ (NEG); Urine Protein 1+ (NEG)
[2018-05-27 20:10] LABS: Urine Microscopic Reflex ORDER UMIC
[2018-05-27 21:13] LABS: Urine Bacteria <20 /HPF (NONE SEEN); Urine Culture Reflex Order NOT NEEDED; Urine RBC <5 /HPF (NONE SEEN)
== END 2018-05-27 19:45 | disposition home or self-care (01) | DRG 287 ==
LOC: ER 08:34 → ERHOLD 10:29 → 4TH 11:31 → OBSVTOIN 16:59
PROVIDERS: ADMIT Family Medicine; ATTEND Family Medicine
PROC: 4A023N7 Measurement of Cardiac Sampling and Pressure, Left Heart, Percutaneous Approach (ICD-10-PCS; principal; 2018-05-27)
PROC: B211YZZ Fluoroscopy of Multiple Coronary Arteries using Other Contrast (ICD-10-PCS; 2018-05-27)
PROC: B215YZZ Fluoroscopy of Left Heart using Other Contrast (ICD-10-PCS; 2018-05-27)
DX: R07.89 Other chest pain (principal); Z68.41 Body mass index [BMI] 40.0-44.9, adult; I10 Essential (primary) hypertension; I25.10 Atherosclerotic heart disease of native coronary artery without angina pectoris; Z95.5 Presence of coronary angioplasty implant and graft; Z86.73 Personal history of transient ischemic attack (TIA), and cerebral infarction without residual deficits; I25.2 Old myocardial infarction; E11.40 Type 2 diabetes mellitus with diabetic neuropathy, unspecified; Z79.84 Long term (current) use of oral hypoglycemic drugs; E78.5 Hyperlipidemia, unspecified; K21.9 Gastro-esophageal reflux disease without esophagitis; G44.89 Other headache syndrome; E66.01 Morbid (severe) obesity due to excess calories
CPT/HCPCS: 36415; 70450; 71045; 76705; 80048; 80061; 80076; 81003; 81015; 82962; 83690; 83735; 83880; 84484; 85025; 85610; 85652; 86140; 93005; 93458; 94760; 96372; 96374; 96375; 99284; C1760; C1893; G0378; J0583; J1650; J2250; J2405; J3010; J7030; J7512

== ENCOUNTER 2019-06-05 18:02 | Emergency (ER) | payer OTHER ==
[2019-06-05] MEDS ORDERED: SODIUM CHL 0.9% 500 ML BAG IV ONE (18:03)
[2019-06-05] MEDS ORDERED: EPINEPHrine 1 MG/10 ML SYR IV ONE (18:03)
[2019-06-05] MEDS ORDERED: MAGNESIUM SULF 1GM/2ML VIAL IM ONE (18:03)
--- OUTSIDE RECORDS SUMMARY | 2019-06-05 18:04 | XMS REPORT | Summary of Care ---
:1960 Author Organization [facility] Address [address] [place] [id number] Care Team Providers Name Role Phone Chidi Coto MD Unavailable Raffaele Downing MD Unavailable Pcp, Patient Does Not Have A Primary Care Provider Reason for Visit Reason Comments Notification d/c from cardiac rehab Encounter Details Date Type Department Care Team Description 10/08/2018 Telephone [facility] Raffaele Downing Notification (d/c from Cardiology- Jennifer Benson MD cardiac rehab) [address] [facility], [address] [place] [phone] Allergies No Known Allergiesdocumented as of this encounter (statuses as of 10/08/2018) Medications Medication Sig Dispensed Refills Start Date End Date Status budesonide-formoterol Inhale 2 Puffs 2 0 Active (SYMBICORT) 160-4.5 (two) times mcg/actuation daily. inhalerIndications: PRN Indications: PRN HYDROcodone-acetaminoph 0 04/02/2016 Active en 10-325 mg tablet nitroglycerin 0.[address] 1 tablet 1 Bottle 2 04/11/2017 Active sublingual under the tongue tabletIndications: every 5 (five) Coronary artery disease minutes as involving cata[place]ba needed for Chest coronary artery of pain. catawba heart with angina pectoris atorvastatin 80 mg Take 80 mg by 0 09/15/2017 Active tablet mouth at bedtime. metFORMIN 500 mg tablet TAKE ONE (1) 5 03/20/2018 Active TABLET(S) BY MOUTH TWICE A DAY WITH MEALS. gabapentin 600 mg TAKE ONE (1) 5 03/20/2018 Active tablet TABLET(S) BY MOUTH TWICE A DAY. amLODIPine 10 mg Take 1 tablet by 30 tablet 4 05/09/2018 Active tabletIndications: mouth daily. Chest pain, unspecified type aspirin 81 mg chewable Take 1 tablet by 90 tablet 0 06/29/2018 Active tablet mouth daily with breakfast. clopidogrel 75 mg TAKE ONE (1) 3 06/11/2018 Active tabletIndications: TABLET(S) BY Dyslipidemia, Coronary MOUTH ONCE A artery disease DAY. involving cata[place]ba coronary artery of catawba heart without angina pectoris, Essential hypertension, PVC (premature ventricular contraction), Type 2 diabetes mellitus without complication, with long-term current use of insulin losartan 50 mg Take 1 tablet by 180 tablet 1 07/15/2018 Active tabletIndications: mouth 2 (two) Dyslipidemia, Coronary times daily. artery disease involving c[place] coronary artery of c[place] heart without angina pectoris, Essential hypertension, PVC (premature ventricular contraction), Type 2 diabetes mellitus without complication, with long-term current use of insulin ezetimibe (ZETIA) 10 mg Take 1 tablet by 30 tablet 5 07/21/2018 Active tablet mouth daily. metoprolol succinate XL Take 0.5 tablets 30 tablet 2 07/21/2018 Active 50 mg 24 hr tablet by mouth 2 (two) times daily. documented as of this encounter (statuses as of 10/08/2018) Active Problems Problem Noted Date CAD S/P percutaneous coronary angioplasty 04/27/2016 Morbid obesity with body mass index of 40.0-49.9 03/29/2016 Morbid obesity with body mass index of 50 or higher 03/29/2016 Observation after surgery 03/29/2016 Type 2 diabetes mellitus without complication, with long-term current use of insulin Dyslipidemia 01/22/2016 Obesity 01/22/2016 Essential hypertension 01/22/2016 Type 2 diabetes mellitus without complication 01/22/2016 Coronary artery disease involving catawba coronary artery of catawba heart 01/21 with angina pectoris Chest pain 02/12/2015 documented as of this encounter (statuses as of 10/08/2018) Immunizations Name Administration Dates Next Due Influenza Virus Vaccine Quad IM 3+ YRS 03/30/2016 documented as of this encounter Social History Tobacco Use Types Packs/Day Years Used Date Never Smoker Smokeless Tobacco: Former User Alcohol Use Drinks/Week oz/Week Comments No 0 Standard drinks or equivalent 0.0 Used to drink some, but now not at all Sex Assigned at Date Recorded Not on file Job Start Date Occupation Industry Not on file Not on file Not on file Travel History Travel Start Travel End No recent travel history available. documented as of this encounter Last Filed Vital Signs Not on filedocumented in this encounter Plan of Treatment Date Type Specialty Care Team Description 10/23/2018 Office Visit Cardiology Raffaele Downing MD [address] [phone] 11/24/2018 Office Visit Pulmonary Disease Maurice Schulte DO [address] [place] [address] Health Maintenance Due Date Last Done Comments HEPATITIS C (HCV) SCREEN 1960 PNEUMOCOCCAL 0-64 YEARS COMBINED 1964 SERIES (1 of 1 - PPSV23) EYE EXAM 1968 URINE MICROALBUMIN 1968 FOOT EXAM 1976 DTaP,Tdap,and Td Vaccines (1 - 1977 Tdap) COLONOSCOPY 2008 Zoster Recombinant Vaccine 2008 (SHINGRIX) (1 of 2) HgA1C 09/26/2016 03/29/2016, 02/12/2015 LDL-C 03/05/2017 03/05/2016, 02/13/2015 CREATININE (SERUM) 06/08/2017 06/08/2016, 04/28/2016, 03/30/2016, Additional history exists INFLUENZA VACCINE 11/02/2018 03/30/2016 documented as of this encounter Implants Implanted Type Area Musical Instrument Maker Or Repairer Device Shelf Model / Identifier Expiration Serial / Lot Date Stent, Ruth 7mmx2.5cm Viabahn Vasc 120cm Cath #[id number] - [id number] STENT W L Ruth [id number] / Implanted: Qty: 1 on 06/08/2016 by Chidi Coto MD at [facility] [id number] / 0 Angio-Seal Evolution Vascular Closure Device [employer] #[id number] - [id number] Right: [employer] 03/03/2017 [id number] / Implanted: Qty: 1 on 06/08/2016 by Chidi Coto MD at [facility] Groin NA / [id number] documented as of this encounter Results Not on filedocumented in this encounter Insurance Payer Benefit Plan / Subscriber ID Effective Dates Phone Address Type Group [facility] xxxxxxxxx 2017-Present Medicaid COMM PLAN - PLUS MANAGED MEDICAID documented as of this encounter
--- OUTSIDE RECORDS SUMMARY | 2019-06-05 18:04 | XMS REPORT ---
:1960 Author Organization [facility] Address [address] [place] [address] Care Team Providers Name Role Phone Unavailable Unavailable Unavailable Problems This patient has no known problems. Allergies, Adverse Reactions, Alerts This patient has no known allergies or adverse reactions. Medications This patient has no known medications.
--- OUTSIDE RECORDS SUMMARY | 2019-06-05 18:04 | XMS REPORT | Summary of Care ---
:1960 Author Organization [facility] - [facility] Address [address] [place] [address] Care Team Providers Name Role Phone Chidi Coto MD Unavailable Raffaele Downing MD Unavailable Pcp, Patient Does Not Have A Primary Care Provider Reason for Visit Reason Comments Follow-up Coronary artery disease involving [place] coronary artery of [place] heart without angina pectoris Encounter Details Date Type Department Care Team Description 10/23/2018 Office Visit [facility] Raffaele Downing Coronary artery disease involving [place] coronary artery of [place] heart without angina pectoris ( Primary Dx); Cardiology- Jennifer Benson MD Dys[facility]; [facility] [address] [facility] Essential hypertension; Drive, [address] 106 PVC (premature ventricular contraction); [place], [place] Type 2 diabetes mellitus without complication, with long-term current use of insulin; [id number] DIEHL (dyspnea on exertion) [phone] Allergies No Known Allergiesdocumented as of this encounter (statuses as of 10/23/2018) Medications Medication Sig Dispensed Refills Start Date End Date Status budesonide-formoterol Inhale 2 Puffs 2 0 Active (SYMBICORT) 160-4.5 (two) times mcg/actuation daily. inhalerIndications: PRN Indications: PRN HYDROcodone-acetaminoph 0 04/02/2016 Active en 10-325 mg tablet nitroglycerin 0.[address] 1 tablet 1 Bottle 2 04/11/2017 Active sublingual under the tongue tabletIndications: every 5 (five) Coronary artery disease minutes as involving [place] needed for Chest coronary artery of pain. [place] heart with angina pectoris atorvastatin 80 mg [...] MOUTH ONCE A artery disease DAY. involving [place] coronary artery of [place] heart without angina pectoris, Essential hypertension, PVC (premature ventricular contraction), Type 2 diabetes mellitus without complication, with long-term current use of insulin losartan 50 mg Take 1 tablet by 180 tablet 1 07/15/2018 Active tabletIndications: mouth 2 (two) Dyslipidemia, Coronary times daily. artery disease involving [place] coronary artery of [place] heart without angina pectoris, Essential hypertension, PVC [...] as of this encounter (statuses as of 10/23/2018) Active Problems Problem Noted Date CAD S/P [...] without complication 01/22/2016 Coronary artery disease involving [place] coronary artery of [place] heart 01/21 with angina pectoris Chest pain 02/12/2015 documented as of this encounter (statuses as of 10/23/2018) Immunizations Name Administration Dates Next Due Influenza [...] of this encounter Last Filed Vital Signs Vital Sign Reading Time Taken Comments Blood Pressure 146/81 10/23/2018 3:09 PM CDT Pulse 66 10/23/2018 3:07 PM CDT Temperature - - Respiratory Rate 19 10/23/2018 3:07 PM CDT Oxygen Saturation 98% 10/23/2018 3:07 PM CDT Inhaled Oxygen Concentration - - Weight 130.4 kg (287 lb 6.4 oz) 10/23/2018 3:07 PM CDT Height 175.3 cm (5' 9") 10/23/2018 3:07 PM CDT Body Mass Index 42.44 10/23/2018 3:07 PM CDT documented in this encounter Progress Notes Raffaele Downing MD - 10/23/2018 2:30 PM CDT [facility] Cardiology Consult Note Patient: Christo Mcfadden Date of : 1960 Primary Care Physician: Femi Walsh Referring Practitioner: CHIEF COMPLAINT: Chief Complaint Patient presents with Follow-up Coronary artery disease involving [place] coronary artery of [place] heart without angina pectoris History of Present Illness: Christo Mcfadden is a 58-year-old male patient presented to the office for follow- up for underlying obstructive CAD. History obtained talking to patient himself. Since the last office visit, he has been feeling very well. Participating CR. Walking 2 miles/day without any cardiac symptoms. No recurrent chest pain noted. DIEHL NYHA Class II stable and improving. No ECG changes noted per patient. Reports compliance with meds (didn't brings his meds). No other symptoms elicited. No syncope noted. No PND or orthopnea. No pedal edema. No exertional palpitations or palpitations at rest. No syncopal attacks. Strong premature CAD in his family Prior cardiac records: - Reviewed Cath reports from [facility] 04/2018 and 05/2018. Ex NM stress in 03/2018 which didn't show any reversible ischemia. He had UT in 04/2018 and having stents in LAD. Again had chest pain in 05/26/2018, [facility] records were reviewed. Trop was 0.6, cath shows patent stents. LDL 115 , DC home with ASA + Plavix. Cardiac studies reviewed by sd 30 day event monitor shows presence of sinus tachycardia and PVCs that was consistent with his symptoms. Hence starting him on beta jessica was recommended NM stress 04/2017 IMPRESSION: 1. The patient's electrocardiogram is nonischemic. 2. The patient's clinical response is symptomatic for angina. 3. Overall left ventricular systolic function is severely reduced. The left ventricular ejection fraction is calculated to be 34 %. 4. SPECT imaging reveals partial reversible ischemia in apical inferior, mid inferior, basal inferior wall segments and apical lateral, mid anterolateral/inferolateral wall segments . Outside records from [facility] was reviewed: 06/2017 Patent stents in LAD. Normal LCX Minimal diease with plaquing in RCA. 40 % distal stenosis in the PDA off the RCA. LV gram: Normal AO pressure normal NM 03/2018 IMPRESSION Impression: A small and mild fixed inferoapical perfusion defect, likely attenuation artifact. Preserved ejection fraction and normal wall thickening. Outside records reviewed Echo 04/2018 Preserved LV EF. Mild LA enlargement. Cath 04/2018: LAD tandem lesions 90 % and 70 %. Post PTCA HEBERT 3 X 16 mm Syngrgy. This was distal to prior LAD stent. Cath 05/2018 Cath no new obs CAD noted Cath 06/2017 No obs CAD noted PAST MEDICAL HISTORY Past Medical History: Diagnosis Date CAD (coronary artery disease) s/p stent Dec 2014 DM (diabetes mellitus) type II controlled peripheral vascular disorder HLD (hyperlipidemia) HTN (hypertension) PVD (peripheral vascular disease) Past Surgical History: Procedure Laterality Date ARTERIOGRAM Right 06/08/2016 Surgeon: Chidi Coto MD; [facility] STENT PLACEMENT (SHX) Dec 2014 Family History Problem Relation Age of Onset Coronary Heart Disease Brother Coronary Heart Disease Brother SOCIAL HISTORY Social History Socioeconomic History Marital status: Spouse name: Not on file Number of children: Not on file Years of education: Not on file Highest education level: Not on file Occupational History Not on file Social Needs Financial resource strain: Not on file Food insecurity: Worry: Not on file Inability: Not on file Transportation needs: Medical: Not on file Non-medical: Not on file Tobacco Use Smoking status: Never Smoker Smokeless tobacco: Former User Substance and Sexual Activity Alcohol use: No Alcohol/week: 0.0 oz Comment: Used to drink some, but now not at all Drug use: No Sexual activity: Not on file Lifestyle Physical activity: Days per week: Not on file Minutes per session: Not on file Stress: Not on file Relationships Social connections: Talks on phone: Not on file Gets together: Not on file Attends nondenominational service: Not on file Active member of club or organization: Not on file Attends meetings of clubs or organizations: Not on file Relationship status: Not on file Intimate partner violence: Fear of current or ex partner: Not on file Emotionally abused: Not on file Physically abused: Not on file Forced sexual activity: Not on file Other Topics Concern Not on file Social History Narrative Not on file ALLERGIES No Known Allergies MEDICATIONS Patient's Medications START taking these medications No medications on file CONTINUE taking these medications which have NOT CHANGED AMLODIPINE 10 MG TABLET Take 1 tablet by mouth daily. ASPIRIN 81 MG CHEWABLE TABLET Take 1 tablet by mouth daily with breakfast. ATORVASTATIN 80 MG TABLET Take 80 mg by mouth at bedtime. BUDESONIDE-FORMOTEROL (SYMBICORT) 160-4.5 MCG/ACTUATION INHALER Inhale 2 Puffs 2 (two) times daily. Indications: PRN CLOPIDOGREL 75 MG TABLET TAKE ONE (1) TABLET(S) BY MOUTH ONCE A DAY. EZETIMIBE (ZETIA) 10 MG TABLET Take 1 tablet by mouth daily. GABAPENTIN 600 MG TABLET TAKE ONE (1) TABLET(S) BY MOUTH TWICE A DAY. HYDROCODONE-ACETAMINOPHEN 10-325 MG TABLET LOSARTAN 50 MG TABLET Take 1 tablet by mouth 2 (two) times daily. METFORMIN 500 MG TABLET TAKE ONE (1) TABLET(S) BY MOUTH TWICE A DAY WITH MEALS. METOPROLOL SUCCINATE XL 50 MG 24 HR TABLET Take 0.5 tablets by mouth 2 (two ) times daily. NITROGLYCERIN 0.[address] 1 tablet under the tongue every 5 (five) minutes as needed for Chest pain. START taking Modified Medications as Prescribed No medications on file STOP taking these medications No medications on file REVIEW OF SYSTEMS: Comprehensive 10-system review was conducted and were negative except for what' s noted in the HPI. The following systems were reviewed: Constitutional, cardiovascular, respiratory, gastrointestinal, genitourinary, musculoskeletal, neurologic, psychiatric, endocrinological, and hematological. PHYSICAL EXAMINATION: Vitals: 10/23/18 1507 10/23/18 1509 BP: (!) 155/88 (!) 146/81 BP Location: Left arm Patient Position: Sitting BP CUFF SIZE: Adult Large Pulse: 66 Resp: 19 SpO2: 98% Weight: 287 lb 6.4 oz (130.4 kg) Height: 5' 9" (1.753 m) General: no apparent distress HEENT: normocephalic atraumatic Neck: supple, no lymphadenopathy, no bruits, no JVD Lungs: clear to auscultation bilaterally. No wheezes or rhonchi. No increased work of breathing. Cardio: Regular rate and rhythm, S1&S2 normal, no murmurs, rubs or gallops Abdomen: soft; non-tender; non-distended; normoactive bowel sounds. : not examined Rectal: not examined Extremities: no clubbing, cyanosis, or edema. Skin: no rashes, no visible lesions. Neuro: no gross focal deficits LABS - Reviewed pertinent labs as below: CBC BMP PT/INR WBC (10*3/L) Date Value 06/08/2016 7.52 NA (mmol/L) Date Value 06/08/2016 138 No results found for: PT PLT (10*3/L) Date Value 06/08/2016 205 K (mmol/L) Date Value 06/08/2016 3.9 INR (no units) Date Value 03/29/2016 1.1 HGB (g/dL) Date Value 06/08/2016 13.1 BUN (mg/dL) Date Value 06/08/2016 14 HCT (%) Date Value 06/08/2016 41.4 CREATININE (mg/dL) Date Value 06/08/2016 0.93 LIPID PROFILE GLUCOSE (mg/dL) Date Value 06/08/2016 110 CHOL (mg/dL) Date Value 03/05/2016 156 TSH LDL CHOL (mg/dL) Date Value 03/05/2016 93 TSH (mIU/L) Date Value 02/12/2015 0.99 CARDIAC ENZYMES HDL (mg/dL) Date Value 03/05/2016 50 (L) CK (U/L) Date Value 02/13/2015 82 TRIG (mg/dL) Date Value 03/05/2016 64 LFTs CK-MB (ng/mL) Date Value 02/13/2015 0.37 AST(SGOT) (U/L) Date Value 03/05/2016 16 TROPONIN I (ng/mL) Date Value 02/13/2015 0.016 ALT(SGPT) (U/L) Date Value 03/05/2016 31 No results found for: BNP LDL CHOL (mg/dL) Date Value 03/05/2016 93 ASSESSMENT/PLAN 1. Coronary artery disease involving [place] coronary artery of [place] heart without angina pectoris 2. Dyslipidemia COMP. METABOLIC PANEL (27641) LIPID PANEL (90836)(TOTAL CHOLESTEROL, TRIGLYCERIDES, HDL) N-TERMINAL PRO-BNP GLYCOSYLATED HEMOGLOBIN (A1C) 3. Essential hypertension 4. PVC (premature ventricular contraction) 5. Type 2 diabetes mellitus without complication, with long-term current use of insulin 6. DIEHL (dyspnea on exertion) Clinically stable from cardiac stand point. No new cardiac complaints noted. Didn't bring his meds bottles or the list with him. CAD: Continue ASA + Plavix in view recent HEBERT in LAD 04/2018. Continue Cardiac rehab in [facility]. Dyslipidemia: on lipitor 80 mg daily and Zetia 10 mg daily. Recommend LDL goal & lt; 70 prefer in 50's. CMP, A1c NT pro BNP and lipid panel ordered, printed and adviced to get it done with [facility] since he goes there for CR and closer to his home. HTN: Reports BP at home < 130/80. Adviced to cross check the meds with AVS and call us. Continue losartan 50 BiD, norvasc 10 mg daily. Continue Toprol XL 25 mg BiD. Explained goal BP < 130/80. Type 2 DM: Following PCP. Recommend A1c to be < 6.5 DIEHL: likely multifactorial. Deconditioning, diastolic HF, weight gain, CAD, HTN. Continue with weight loss and lifestyle changes. Follow up in 6-8 weeks. Recommended goal BP < 130/80 consistently, LDL << 70, HbA1c < 6.5. Patient's diease process and its evaluation and treatment were discussed. We discussed each of for cardio vascular-related problems and discussed long-term goals and expectations for the each problem.I reviewed each of the cardiac medications in detail. Reviewed the medication with patient in detail recommended to continue taking the current medications without further changes. Recommended, explained and stressed the importance of healthy eating habits and exercises and lifestyle modifications Follow up as planned is predicated on symptoms stability and/or acceptable test results. Patient is urged to call in sooner should problems arise or if there is no improvement in cardiac symptoms. ER warning signs and symptoms explained and patient verbalized understanding. My diagnostic impression and treatment plans were discussed at length with the patient. All side effects as well as drug-drug interactions and risks discussed at length. Ample opportunity was offered and encouraged to ask questions during this visit and patient verbzalised statisfcation in the answersgiven. We reviewed the [place] [employer] recommendations for reduction of overall cardio vascular risk. The importance of monitoring the blood pressure carefully both at home on regular basis along with other physicians appointment was stressed in detail. In addition we discussed target LDL levels for optimal risk reduction. It was advised that to daily physical activity be performed with 30 minutes of sustained exercise for both cardio vascular fitness and improvement for generalized medical health and well-being. Florencio Downing MD Cnc Mechanic, Division of Cardiology [facility] documented in this encounter Plan of Treatment Date Type Specialty Care Team Description 11/24/2018 Office Visit Pulmonary Disease Maurice Schulte DO [address] [place] [address] 12/23/2018 Office Visit Cardiology Raffaele Downing MD [address] [place] [address] Name Type Priority Associated Diagnoses Order Schedule COMP. METABOLIC PANEL LAB Routine Dyslipidemia 1 Occurrences starting (34042) 10/23/2018 until 10/24/2019 LIPID PANEL (36730)(TOTAL LAB Routine Dyslipidemia 1 Occurrences starting CHOLESTEROL, 10/23/2018 until TRIGLYCERIDES, HDL) 10/22/2019 N-TERMINAL PRO-BNP LAB Routine Dyslipidemia 1 Occurrences starting 10/23/2018 until 10/23/2019 GLYCOSYLATED HEMOGLOBIN LAB Routine Dyslipidemia 1 Occurrences starting (A1C) 10/23/2018 until 10/24/2019 Health Maintenance Due Date Last Done Comments [...] 04/28/2016, 03/30/2016, Additional history exists INFLUENZA VACCINE (#1) 2018 03/30/2016 documented as of this encounter Implants Implanted Type Area Assistant Paralegal Device Shelf Model / Identifier Expiration Serial / Lot Date Stent, [place] 7mmx2.5cm Viabahn Vasc 120cm Cath #[id number] - [id number] STENT W L [place] [id number] / Implanted: Qty: 1 on 06/08/2016 by Chidi Coto MD at [facility] [id number] / 0 Angio-Seal Evolution Vascular Closure Device [employer] #[id number] - [id number] Right: [employer] 03/03/2017 [id number] / Implanted: Qty: 1 on 06/08/2016 by Chidi Coto MD at [facility] Groin NA / [id number] documented as of this encounter Results Not on filedocumented in this encounter Visit Diagnoses Diagnosis Coronary artery disease involving [place] coronary artery of gamb[place] heart without angina pectoris - Primary Dyslipidemia Other and unspecified hyperlipidemia Essential hypertension Unspecified essential hypertension PVC (premature ventricular contraction) Other premature beats Type 2 diabetes mellitus without complication, with long-term current use of insulin DIEHL (dyspnea on exertion) Other dyspnea and respiratory abnormality documented in this encounter Insurance Payer Benefit Plan / Subscriber ID Effective Dates Phone Address Type Group [facility] xxxxxxxxx 2017-Present Medicaid COMM PLAN - PLUS MANAGED MEDICAID documented as of this encounter
--- OUTSIDE RECORDS SUMMARY | 2019-06-05 18:04 | XMS REPORT | Summary of Care ---
:1960 Author Organization [facility] - Health Address [address] [place] [id number] Care Team Providers Name Role Phone Chidi Coto MD Unavailable Raffaele Downing MD Unavailable Pcp, Patient Does Not Have A Primary Care Provider Encounter Details Date Type Department Care Team Description 10/08/2018 Orders Only [facility] Doctor Unassigned, No [address] [facility] Name [address] [address] Allergies No Known Allergiesdocumented as of this encounter (statuses as of 10/14/2018) Medications Medication Sig Dispensed Refills Start Date End Date Status budesonide-formoterol Inhale 2 Puffs 2 0 Active (SYMBICORT) 160-4.5 (two) times mcg/actuation daily. inhalerIndications: PRN Indications: PRN HYDROcodone-acetaminoph 0 04/02/2016 Active en 10-325 mg tablet nitroglycerin 0.[address] 1 tablet 1 Bottle 2 04/11/2017 Active sublingual under the tongue tabletIndications: every 5 (five) Coronary artery disease minutes as involving [place] needed for Chest coronary artery of pain. [place] heart with angina pectoris atorvastatin 80 mg [...] MOUTH ONCE A artery disease DAY. involving [place] coronary artery of [place] heart without angina pectoris, Essential hypertension, PVC (premature ventricular contraction), Type 2 diabetes mellitus without complication, with long-term current use of insulin losartan 50 mg Take 1 tablet by 180 tablet 1 07/15/2018 Active tabletIndications: mouth 2 (two) Dyslipidemia, Coronary times daily. artery disease involving [place] coronary artery of [place] heart without angina pectoris, Essential hypertension, PVC [...] as of this encounter (statuses as of 10/14/2018) Active Problems Problem Noted Date CAD S/P [...] without complication 01/22/2016 Coronary artery disease involving [place] coronary artery of [place] heart 01/21 with angina pectoris Chest pain 02/12/2015 documented as of this encounter (statuses as of 10/14/2018) Immunizations Name Administration Dates Next Due Influenza [...] Cardiology Raffaele Downing MD [address] [address] 11/24/2018 Office Visit Pulmonary Disease Maurice Schulte DO [address] [place] [address] Health Maintenance Due Date Last [...] of this encounter Implants Implanted Type Area Storm Door Maker Device Shelf Model / Identifier Expiration Serial / Lot Date Stent, [place] 7mmx2.5cm Viabahn Vasc 120cm Cath #[id number] - [id number] STENT W L [place] [id number] / Implanted: Qty: 1 on 06/08/2016 by Chidi Coto MD at [facility] [id number] / 0 Angio-Seal Evolution Vascular Closure Device [employer] #[id number] - [id number] Right: [employer] 03/03/2017 [id number] / Implanted: Qty: 1 on 06/08/2016 by Chidi Coto MD at [facility] / [id number] documented as of this encounter Procedures Procedure Name Priority Date/Time Associated Diagnosis Comments EXTERNAL PROVIDER - ADC Routine 10/08/2018 12:01 AM CARDIOLOGY CDT documented in this encounter Results Not on filedocumented in this encounter Insurance Payer Benefit Plan / Subscriber ID Effective Dates Phone Address Type Group [facility] xxxxxxxxx 2017-Present Medicaid COMM PLAN - PLUS MANAGED MEDICAID documented as of this encounter
--- OUTSIDE RECORDS SUMMARY | 2019-06-05 18:05 | XMS REPORT | Summary of Care ---
:1960 Author Organization [facility] - [facility] Address [address] [place] [address] Care Team Providers Name Role Phone Chidi Coto MD Unavailable Raffaele Downing MD Unavailable Femi Walsh Primary Care Provider Reason for Visit Reason Comments Follow-up 2mo Encounter Details Date Type Department Care Team Description 05/07/2019 Office Visit [facility] Raffaele Downing Coronary artery disease involving hopi coronary artery of hopi heart without angina pectoris ( Primary Dx); Cardiology- Jennifer Benson MD Dyslipidemia; [address] [place] [address] [facility] Essential hypertension; Drive, [address] JOSUE 106 Type 2 diabetes mellitus without complication, with long-[place] [id number] Allergies No Known Allergiesdocumented as of this encounter (statuses as of 05/10/2019) Medications Medication Sig Dispensed Refills Start Date End Date Status budesonide-formoter Inhale 2 0 Active ol (SYMBICORT) Puffs 2 (two) 160-4.5 times daily. mcg/actuation Indications: inhalerIndications: PRN PRN HYDROcodone-acetami 0 04/02/2016 Active nophen 10-325 mg tablet [address] 0[address] 1 1 Bottle 2 04/11/2017 Active mg sublingual tablet under tabletIndications: the tongue Coronary artery every 5 disease involving (five) hopi coronary minutes as artery of hopi needed for heart with angina Chest pain. pectoris atorvastatin 80 mg Take 80 mg by 0 09/15/2017 Active tablet mouth at bedtime. metFORMIN 500 mg TAKE ONE (1) 5 03/20/2018 Active tablet TABLET(S) BY MOUTH TWICE A DAY WITH MEALS. gabapentin 600 mg TAKE ONE (1) 5 03/20/2018 Active tablet TABLET(S) BY MOUTH TWICE A DAY. amLODIPine 10 mg Take 1 tablet 30 tablet 4 05/09/2018 Active tabletIndications: by mouth Chest pain, daily. unspecified type aspirin 81 mg Take 1 tablet 90 tablet 0 06/29/2018 Active chewable tablet by mouth daily with breakfast. clopidogrel 75 mg TAKE ONE (1) 3 06/11/2018 Active tabletIndications: TABLET(S) BY Dyslipidemia, MOUTH ONCE A Coronary artery DAY. disease involving hopi coronary artery of hopi heart without angina pectoris, Essential hypertension, PVC (premature ventricular contraction), Type 2 diabetes mellitus without complication, with long-term current use of insulin losartan 50 mg Take 1 tablet 180 tablet 1 07/15/2018 Active tabletIndications: by mouth 2 Dyslipidemia, (two) times Coronary artery daily. disease involving hopi coronary artery of hopi heart without angina pectoris, Essential hypertension, PVC (premature ventricular contraction), Type 2 diabetes mellitus without complication, with long-term current use of insulin ezetimibe (ZETIA) Take 1 tablet 30 tablet 5 07/21/2018 Active 10 mg tablet by mouth daily. metoprolol Take 1 tablet 30 tablet 2 03/05/2019 05/07/2019 Discontinued succinate XL 50 mg by mouth 24 hr tablet daily. documented as of this encounter (statuses as of 05/10/2019) Active Problems Problem Noted Date CAD S/P [...] without complication 01/22/2016 Coronary artery disease involving hopi coronary artery of hopi heart 01/21 with angina pectoris Chest pain 02/12/2015 documented as of this encounter (statuses as of 05/10/2019) Immunizations Name Administration Dates Next Due Influenza [...] Sign Reading Time Taken Comments Blood Pressure 138/81 05/07/2019 1:51 PM CHIEF MINISTER Pulse 57 05/07/2019 1:51 PM CHIEF MINISTER Temperature - - Respiratory Rate 22 05/07/2019 1:51 PM CHIEF MINISTER Oxygen Saturation 95% 05/07/2019 1:51 PM CHIEF MINISTER Inhaled Oxygen Concentration - - Weight 132.8 kg (292 lb 12.8 oz) 05/07/2019 1:51 PM CHIEF MINISTER Height 175.3 cm (5' 9") 05/07/2019 1:51 PM CHIEF MINISTER Body Mass Index 43.24 05/07/2019 1:51 PM CHIEF MINISTER documented in this encounter Patient Instructions Patient InstructionsPrasaRaffaele ye MD - 05/07/2019 1:30 PM CSTExplained that from the cardiac standpoint patient may undergo the dental procedure under low risk category. Recommended to continue taking the aspirin perioperative without any interruption. Patient may hold off the Plavix at least 5-7 days before the procedure and to be restarted back as soon as possible at discretion of the procedure performing physician once adequate hemostasis is obtained. F MINISTER documented in this encounter Progress Notes Raffaele Downing MD - 05/07/2019 1:30 PM CST [facility] Cardiology Consult Note Patient: Christo Mcfadden Date of : 1960 Primary Care Physician: Femi Walsh CHIEF COMPLAINT: Chief Complaint Patient presents with Follow-up 2mo History of Present Illness: Christo Mcfadden is a 59-year-old male patient presented to the office for follow- up for underlying obstructive CAD. History obtained talking to patient himself. Since the last office visit, feeling very well. No new cardiac complaints noted. No recurrent chest pain noted. DIEHL NYHA Class II stable and improving. Reports compliance with meds (didn't brings his meds). No other symptoms elicited. No syncope noted. No PND or orthopnea. No pedal edema. No exertional palpitations or palpitations at rest. No syncopal attacks. Strong premature CAD in his family Prior cardiac records: - Reviewed Cath reports from [facility] 04/2018 and 05/2018. Ex NM stress in 03/2018 which didn't show any reversible ischemia. He had CO in 04/2018 and having stents in LAD. Again had chest pain in 05/26/2018, [facility] records were reviewed. Trop was 0.6, cath shows patent stents. LDL 115 , DC home with ASA + Plavix. Cardiac studies reviewed by [place] 30 day event monitor shows presence of [...] anterolateral/inferolateral wall segments . Outside records from [facility] was reviewed: 06/2017 Patent stents in LAD. [...] Right 06/08/2016 Surgeon: Chidi Coto MD; Location: [facility] STENT PLACEMENT (SHX) Dec 2014 Family History [...] Sexual Activity Alcohol use: No Alcohol/week: 0.0 standard drinks Comment: Used to drink some, but now not at all Drug use: No Sexual activity: Not on file Lifestyle Physical activity: Days per week: Not on file Minutes per session: Not on file Stress: Not on file Relationships Social connections: Talks on phone: Not on file Gets together: Not on file Attends zoroastrian service: Not on file Active member of [...] BY MOUTH TWICE A DAY WITH MEALS. NITROGLYCERIN 0.[address] 1 tablet under the tongue every 5 (five) minutes as needed for Chest pain. START taking Modified Medications as Prescribed No medications on file STOP taking these medications METOPROLOL SUCCINATE XL 50 MG 24 HR TABLET Take 1 tablet by mouth daily. REVIEW OF SYSTEMS: Comprehensive 10-system review was conducted and were negative except for what' s noted in the HPI. The following systems were reviewed: Constitutional, cardiovascular, respiratory, gastrointestinal, genitourinary, musculoskeletal, neurologic, psychiatric, endocrinological, and hematological. PHYSICAL EXAMINATION: Vitals: 05/07/19 1351 BP: 138/81 BP Location: Left arm Patient Position: Sitting BP CUFF SIZE: Adult Large Pulse: 57 Resp: 22 SpO2: 95% Weight: 292 lb 12.8 oz (132.8 kg) Height: 5' 9" (1.753 m) General: [...] 93 ASSESSMENT/PLAN 1. Coronary artery disease involving hopi coronary artery of hopi heart without angina pectoris 2. Dyslipidemia 3. Essential hypertension 4. Type 2 diabetes mellitus without complication, with long-term current use of insulin Clinically stable from cardiac stand point. No new cardiac complaints noted. CAD s/p PCI to LAD 04/2018 Currently on ASA + Plavix. Explained that he may proceed with tooth extraction from cardiac stand point under moderate risk. Recommended to continue taking the aspirin perioperative without any interruption. He may hold off the Plavix at least 5-7 days before the procedure and to be restarted back as soon as possible at discretion of the procedure performing physician once adequate hemostasis is obtained. Dyslipidemia: on lipitor 80 mg daily and Zetia 10 mg daily. Recommend LDL goal & lt; 70 prefer in 50's. CMP, A1c NT pro BNP and lipid panel to be done and orders placed again and printed and given it to him since he wants to get it done in [facility]. HTN: Currently on Continue losartan 50 BiD, norvasc 10 mg daily. Explained goal BP < 130/80. Home BP log recommended. Cross check his BP machine. Appropriate ways to check home BP discussed. Goals BP < 130/80 stressed. Explained if BP > 130/80, adviced to send us the log. Lifestyle modifications stressed. Type 2 DM: Following PCP. Recommend A1c to be < 6.5 DIEHL: likely multifactorial. Deconditioning, diastolic HF, weight gain, CAD, HTN. Follow up in 3 months. Will plan for echo after next OV. Recommended goal BP < 130/80 consistently, LDL [...] statisfcation in the answersgiven. We reviewed the [place] Heart Association recommendations for reduction of overall [...] medical health and well-being. Florencio Downing MD President, Division of Cardiology [facility] documented in this encounter Plan of Treatment Date Type Specialty Care Team Description 08/07/2019 Office Visit Cardiology Raffaele Downing MD [address] [facility] [facility] [address] [place] [address] [place] [phone] Health Maintenance Due Date Last Done Comments HEPATITIS C (HCV) SCREEN 1960 PNEUMOCOCCAL 0-64 YEARS 1964 COMBINED SERIES (1 of 1 - PPSV23) EYE EXAM 1968 URINE MICROALBUMIN 1968 DTaP,Tdap,and Td Vaccines 1969 (1 - Tdap) FOOT EXAM 1976 COLONOSCOPY 2008 Zoster Recombinant Vaccine 2008 (SHINGRIX) (1 of 2) HgA1C 09/26/2016 03/29/2016, 02/12/2015 LDL-C 03/05/2017 03/05/2016, 02/13/2015 CREATININE (SERUM) 06/08/2017 06/08/2016, 04/28/2016, 03/30/2016, Additional history exists INFLUENZA VACCINE (#1) 2020 03/30/2016 Postponed from 11/02/2018 (Refused) documented as of this encounter Implants Implanted Type Area Silk Screen Cutter Device Shelf Model / Identifier Expiration Serial / Lot Date Stent, [place] 7mmx2.5cm Viabahn Vasc 120cm Cath #[id number] - [id number] STENT W L [place] [id number] / Implanted: Qty: 1 on 06/08/2016 by Chidi Coto MD at [facility] [id number] / 0 Angio-Seal Evolution Vascular Closure Device [employer] #[id number] - [id number] Right: [employer] 03/03/2017 [id number] / Implanted: Qty: 1 on 06/08/2016 by Chidi Coto MD at [facility] Groin NA / [id number] documented as of this encounter Results Not on filedocumented in this encounter Visit Diagnoses Diagnosis Coronary artery disease involving hopi coronary artery of hopi heart without angina pectoris - Primary Dyslipidemia Other and unspecified hyperlipidemia Essential hypertension Unspecified essential hypertension Type 2 diabetes mellitus without complication, with long-term current use of insulin documented in this encounter Insurance Payer Benefit Plan / Subscriber ID Effective Dates Phone Address Type Group [facility] xxxxxxxxx 2017-Present Medicaid COMM PLAN - PLUS MANAGED MEDICAID documented as of this encounter
--- OUTSIDE RECORDS SUMMARY | 2019-06-05 18:06 | XMS REPORT | Summary of Care ---
:1960 Author Organization [facility] - [facility] Address [address] [place] [address] Care Team Providers Name Role Phone Chidi Coto MD Unavailable Raffaele Downing MD Unavailable Femi Walsh Primary Care Provider Reason for Visit Reason Comments Follow-up 2mo Encounter Details Date Type Department Care Team Description 05/07/2019 Office Visit [facility] Raffaele Downing Coronary artery disease involving chenega coronary artery of chenega heart without angina pectoris ( Primary Dx); Cardiology- Jennifer Benson MD Dyslipidemia; [address] [place] [address] [facility] Essential hypertension; Drive, [address] 106 Type 2 diabetes mellitus without complication, with long-term [place] [phone] Allergies No Known Allergiesdocumented as of this [...] Coronary artery every 5 disease involving (five) chenega coronary minutes as artery of chenega needed for heart with angina Chest pain. [...] ONCE A Coronary artery DAY. disease involving chenega coronary artery of chenega heart without angina pectoris, Essential hypertension, PVC (premature ventricular contraction), Type 2 diabetes mellitus without complication, with long-term current use of insulin losartan 50 mg Take 1 tablet 180 tablet 1 07/15/2018 Active tabletIndications: by mouth 2 Dyslipidemia, (two) times Coronary artery daily. disease involving chenega coronary artery of chenega heart without angina pectoris, Essential hypertension, PVC [...] without complication 01/22/2016 Coronary artery disease involving chenega coronary artery of chenega heart 01/21 with angina pectoris Chest pain [...] Comments Blood Pressure 138/81 05/07/2019 1:51 PM RAPID EXTRACTOR OPERATOR Pulse 57 05/07/2019 1:51 PM RAPID EXTRACTOR OPERATOR Temperature - - Respiratory Rate 22 05/07/2019 1:51 PM RAPID EXTRACTOR OPERATOR Oxygen Saturation 95% 05/07/2019 1:51 PM RAPID EXTRACTOR OPERATOR Inhaled Oxygen Concentration - - Weight 132.8 kg (292 lb 12.8 oz) 05/07/2019 1:51 PM RAPID EXTRACTOR OPERATOR Height 175.3 cm (5' 9") 05/07/2019 1:51 PM RAPID EXTRACTOR OPERATOR Body Mass Index 43.24 05/07/2019 1:51 PM RAPID EXTRACTOR OPERATOR documented in this encounter Patient Instructions Patient [...] performing physician once adequate hemostasis is obtained. D EXTRACTOR OPERATOR documented in this encounter Progress Notes Raffaele Downing MD - 05/07/2019 1:30 PM CST [facility] Cardiology Consult Note Patient: Christo [...] cardiac records: - Reviewed Cath reports from [facility] 04/2018 and 05/2018. Ex NM stress in 03/2018 which didn't show any reversible ischemia. He had CT in 04/2018 and having stents in LAD. Again had chest pain in 05/26/2018, [facility] records were reviewed. Trop was 0.6, cath shows patent stents. LDL 115 , DC home with ASA + Plavix. Cardiac studies reviewed by nd 30 day event monitor shows presence of [...] anterolateral/inferolateral wall segments . Outside records from [facility] was reviewed: 06/2017 Patent stents in LAD. [...] Right 06/08/2016 Surgeon: Chidi Coto MD; Location: [facility] STENT PLACEMENT (SHX) Dec 2014 Family History [...] file Gets together: Not on file Attends alevism service: Not on file Active member of [...] 93 ASSESSMENT/PLAN 1. Coronary artery disease involving chenega coronary artery of chenega heart without angina pectoris 2. Dyslipidemia 3. [...] he wants to get it done in [facility]. HTN: Currently on Continue losartan 50 BiD, [...] statisfcation in the answersgiven. We reviewed the [place] Heart Association recommendations for reduction of overall [...] medical health and well-being. Florencio Downing MD Marine Electrician Apprentice, Division of Cardiology [facility] documented in this encounter Plan of Treatment Date Type Specialty Care Team Description 08/07/2019 Office Visit Cardiology Raffaele Downing MD [address] [facility] [address] [place] [address] [place] [phone] Health Maintenance Due Date Last Done [...] of this encounter Implants Implanted Type Area Green Chain Puller Device Shelf Model / Identifier Expiration Serial / Lot Date Stent, [place] 7mmx2.5cm Viabahn Vasc 120cm Cath #[id number] - [id number] STENT W L [place] [id number] / Implanted: Qty: 1 on 06/08/2016 by Chidi Coto MD at [facility] [id number] / 0 Angio-Seal Evolution Vascular Closure Device [employer] #[id number] - [id number] Right: [employer] 03/03/2017 [id number] / Implanted: Qty: 1 on 06/08/2016 by Chidi Coto MD at [facility] Groin NA / [id number] documented as of this encounter Results Not on filedocumented in this encounter Visit Diagnoses Diagnosis Coronary artery disease involving chenega coronary artery of chenega heart without angina pectoris - Primary Dyslipidemia Other and unspecified hyperlipidemia Essential hypertension Unspecified essential hypertension Type 2 diabetes mellitus without complication, with long-term current use of insulin documented in this encounter Insurance Payer Benefit Plan / Subscriber ID Effective Dates Phone Address Type Group [facility] xxxxxxxxx 2017-Present Medicaid COMM PLAN - PLUS MANAGED MEDICAID documented as of this encounter
--- OUTSIDE RECORDS SUMMARY | 2019-06-05 18:06 | XMS REPORT | Summary of Care ---
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 [...] ONCE A Coronary artery DAY. disease involving ekuk coronary artery of ekuk heart without angina pectoris, Essential hypertension, PVC (premature ventricular contraction), Type 2 diabetes mellitus without complication, with long-term current use of insulin losartan 50 mg Take 1 tablet 180 tablet 1 07/15/2018 Active tabletIndications: by mouth 2 Dyslipidemia, (two) times Coronary artery daily. disease involving ekuk coronary artery of ekuk heart without angina pectoris, Essential hypertension, PVC [...] without complication 01/22/2016 Coronary artery disease involving ekuk coronary artery of ekuk heart 01/21 with angina pectoris Chest pain [...] Comments Blood Pressure 138/81 05/07/2019 1:51 PM WASHING MACHINE ASSEMBLER Pulse 57 05/07/2019 1:51 PM WASHING MACHINE ASSEMBLER Temperature - - Respiratory Rate 22 05/07/2019 1:51 PM WASHING MACHINE ASSEMBLER Oxygen Saturation 95% 05/07/2019 1:51 PM WASHING MACHINE ASSEMBLER Inhaled Oxygen Concentration - - Weight 132.8 kg (292 lb 12.8 oz) 05/07/2019 1:51 PM WASHING MACHINE ASSEMBLER Height 175.3 cm (5' 9") 05/07/2019 1:51 PM WASHING MACHINE ASSEMBLER Body Mass Index 43.24 05/07/2019 1:51 PM WASHING MACHINE ASSEMBLER documented in this encounter Patient Instructions Patient [...] performing physician once adequate hemostasis is obtained. ING MACHINE ASSEMBLER documented in this encounter Progress Notes Raffaele Downing MD - 05/07/2019 1:30 PM CST [facility] Cardiology Consult Note Patient: Christo Mcfadden Date [...] cardiac records: - Reviewed Cath reports from [facility] 04/2018 and 05/2018. Ex NM stress in 03/2018 which didn't show any reversible ischemia. He had MS in 04/2018 and having stents in LAD. Again had chest pain in 05/26/2018, [facility] records were reviewed. Trop was 0.6, cath shows patent stents. LDL 115 , DC home with ASA + Plavix. Cardiac studies reviewed by ar 30 day event monitor shows presence of [...] anterolateral/inferolateral wall segments . Outside records from [facility] was reviewed: 06/2017 Patent stents in LAD. [...] Right 06/08/2016 Surgeon: Chidi Coto MD; Location: [facility] STENT PLACEMENT (SHX) Dec 2014 Family [...] file Gets together: Not on file Attends jain service: Not on file Active member of [...] 93 ASSESSMENT/PLAN 1. 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 Dyslipidemia 3. Essential hypertension 4. Type 2 diabetes mellitus without complication, with long-term current use of insulin Clinically stable from cardiac stand point. No new cardiac complaints noted. CAD s/p PCI to LAD 04/2018 Currently on ASA + Plavix. Explained that he may proceed with tooth extraction from cardiac stand point under low risk. Recommended to continue taking the aspirin [...] he wants to get it done in [facility]. HTN: Currently on Continue losartan 50 [...] statisfcation in the answersgiven. We reviewed the [place] Heart Association recommendations for reduction of overall [...] medical health and well-being. Florencio Downing MD Employment Legal Assistant, Division of Cardiology [facility] documented in this encounter Plan of Treatment Date Type Specialty Care Team Description 08/07/2019 Office Visit Cardiology Raffaele Downing MD [address] [facility] [address] [place] [address] [place] [phone] Health Maintenance Due Date Last Done [...] of this encounter Implants Implanted Type Area Sprayer Insecticide Device Shelf Model / Identifier Expiration Serial / Lot Date Stent, [place] 7mmx2.5cm Viabahn Vasc 120cm Cath #[id number] - [id number] STENT W L [place] [id number] / Implanted: Qty: 1 on 06/08/2016 by Chidi Coto MD at [facility] [id number] / 0 Angio-Seal Evolution Vascular Closure Device [employer] #[id number] - [id number] Right: [employer] 03/03/2017 [id number] / Implanted: Qty: 1 on 06/08/2016 by Chidi Coto MD at [facility] Groin NA / [id number] documented as of this encounter Results Not on filedocumented in this encounter Visit Diagnoses Diagnosis 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
--- OUTSIDE RECORDS SUMMARY | 2019-06-05 18:07 | XMS REPORT | Summary of Care ---
:1960 Author Organization [facility] - [facility] Address [address] [place] [id number] Care Team Providers Name Role Phone Chidi Coto MD Unavailable Raffaele Downing MD Unavailable Femi Walsh Primary Care Provider Reason for Visit Reason Comments Refill Request Encounter Details Date Type Department Care Team Description 06/03/2019 Refill [facility] Cardiology- Raffaele Downing MD Refill Request [address], [address] [place] [address] [place] [address] Allergies No Known Allergiesdocumented as of this encounter (statuses as of 06/03/2019) Medications Medication Sig Dispensed Refills Start Date End Date Status budesonide-formote Inhale 2 0 Active rol (SYMBICORT) Puffs 2 160-4.5 (two) times mcg/actuation daily. inhalerIndications Indications: : PRN PRN HYDROcodone-acetam 0 04/02/2016 Active inophen 10-325 mg tablet [address] 1 1 Bottle 2 04/11/2017 Active mg sublingual tablet under tabletIndications: the tongue Coronary artery every 5 disease involving (five) [place] coronary minutes as artery of [place] needed for heart with angina Chest pain. pectoris atorvastatin 80 mg Take 80 mg 0 09/15/2017 Active tablet by mouth at bedtime. metFORMIN 500 mg TAKE ONE (1) 5 03/20/2018 Active tablet TABLET(S) BY MOUTH TWICE A DAY WITH MEALS. gabapentin 600 mg TAKE ONE (1) 5 03/20/2018 Active tablet TABLET(S) BY MOUTH TWICE A DAY. amLODIPine 10 mg Take 1 30 tablet 4 05/09/2018 Active tabletIndications: tablet by Chest pain, mouth daily. unspecified type aspirin 81 mg Take 1 90 tablet 0 06/29/2018 Active chewable tablet tablet by mouth daily with breakfast. clopidogrel 75 mg TAKE ONE (1) 3 06/11/2018 Active tabletIndications: TABLET(S) BY Dyslipidemia, MOUTH ONCE A Coronary artery DAY. disease involving [place] coronary artery of [place] heart without angina pectoris, Essential hypertension, PVC (premature ventricular contraction), Type 2 diabetes mellitus without complication, with long-term current use of insulin ezetimibe (ZETIA) Take 1 30 tablet 5 07/21/2018 Active 10 mg tablet tablet by mouth daily. losartan 50 mg Take 1 180 tablet 0 06/03/2019 Active tabletIndications: tablet by Dyslipidemia, mouth 2 Coronary artery (two) times disease involving daily. [place] coronary artery of [place] heart without angina pectoris, Essential hypertension, PVC (premature ventricular contraction), Type 2 diabetes mellitus without complication, with long-term current use of insulin losartan 50 mg Take 1 180 tablet 1 07/15/2018 Discontinued tabletIndications: tablet by 0 (Reorder) Dyslipidemia, mouth 2 Coronary artery (two) times disease involving daily. [place] coronary artery of [place] heart without angina pectoris, Essential hypertension, PVC (premature ventricular contraction), Type 2 diabetes mellitus without complication, with long-term current use of insulin documented as of this encounter (statuses as of 06/03/2019) Active Problems Problem Noted Date CAD S/P [...] without complication 01/22/2016 Coronary artery disease involving [place] coronary artery of [place] heart 01/21 with angina pectoris Chest pain 02/12/2015 documented as of this encounter (statuses as of 06/03/2019) Immunizations Name Administration Dates Next Due Influenza [...] Cardiology Raffaele Downing MD [address] [address] Health Maintenance Due Date Last Done [...] of this encounter Implants Implanted Type Area Prestressed Concrete Laborer Device Shelf Model / Identifier Expiration Serial / Lot Date Stent, [place] 7mmx2.5cm Viabahn Vasc 120cm Cath #[id number] - [id number] STENT W L [place] [id number] / Implanted: Qty: 1 on 06/08/2016 by Chidi Coto MD at [facility] [id number] / 0 Angio-Seal Evolution Vascular Closure Device [employer] #[id number] - [id number] Right: [employer] 03/03/2017 [id number] / Implanted: Qty: 1 on 06/08/2016 by Chidi Coto MD at [facility] / [id number] documented as of this encounter Results Not on filedocumented in this encounter Visit Diagnoses Diagnosis Dyslipidemia Other and unspecified hyperlipidemia Coronary artery disease involving [place] coronary artery of [place] heart without angina pectoris Essential hypertension Unspecified essential hypertension PVC (premature ventricular contraction) Other premature beats Type 2 diabetes mellitus without complication, with long-term current use of insulin documented in this encounter Insurance Payer Benefit Plan / Subscriber ID Effective Dates Phone Address Type Group [facility] xxxxxxxxx 2017-Present Medicaid COMM PLAN - PLUS MANAGED MEDICAID documented as of this encounter
--- OUTSIDE RECORDS SUMMARY | 2019-06-05 18:07 | XMS REPORT | Summary of Care ---
:1960 Author Organization [facility] [[email or web address] - [facility] Address [address] [place] [address] Care Team Providers Name Role Phone Chidi Coto MD Unavailable Raffaele Downing MD Unavailable Femi Walsh Primary Care Provider Reason for Visit Reason Comments Pre-op Clearance Encounter Details Date Type Department Care Team Description 05/19/2019 Telephone [facility] Cardiology- Raffaele Downing, Pre-op Clearance Jennifer EUCEDA [address] [place] [address], [facility] [address] [place] [address] [place], [place] [phone] Allergies No Known Allergiesdocumented as of this encounter (statuses as of 05/19/2019) Medications Medication Sig Dispensed Refills Start Date End Date Status budesonide-formoterol Inhale 2 Puffs 2 0 Active (SYMBICORT) 160-4.5 (two) times mcg/actuation daily. inhalerIndications: PRN Indications: PRN HYDROcodone-acetaminoph 0 04/02/2016 Active en 10-325 mg tablet nitroglycerin 0.[address] 1 tablet 1 Bottle 2 04/11/2017 Active sublingual under the tongue tabletIndications: every 5 (five) Coronary artery disease minutes as involving [place] needed for Chest coronary artery of pain. [place] heart with angina pectoris atorvastatin 80 mg [...] MOUTH ONCE A artery disease DAY. involving [place] coronary artery of [place] heart without angina pectoris, Essential hypertension, PVC (premature ventricular contraction), Type 2 diabetes mellitus without complication, with long-term current use of insulin losartan 50 mg Take 1 tablet by 180 tablet 1 07/15/2018 Active tabletIndications: mouth 2 (two) Dyslipidemia, Coronary times daily. artery disease involving [place] coronary artery of [place] heart without angina pectoris, Essential hypertension, PVC (premature ventricular contraction), Type 2 diabetes mellitus without complication, with long-term current use of insulin ezetimibe (ZETIA) 10 mg Take 1 tablet by 30 tablet 5 07/21/2018 Active tablet mouth daily. documented as of this encounter (statuses as of 05/19/2019) Active Problems Problem Noted Date CAD S/P [...] without complication 01/22/2016 Coronary artery disease involving [place] coronary artery of [place] heart 01/21 with angina pectoris Chest pain 02/12/2015 documented as of this encounter (statuses as of 05/19/2019) Immunizations Name Administration Dates Next Due Influenza [...] Cardiology Raffaele Downing MD [address] [place] [phone] Health Maintenance Due Date Last Done [...] of this encounter Implants Implanted Type Area Machining Engineer Device Shelf Model / Identifier Expiration Serial / Lot Date Stent, [place] 7mmx2.5cm Viabahn Vasc 120cm Cath #[id number] - [id number] STENT W L [place] [id number] / Implanted: Qty: 1 on 06/08/2016 by Chidi Coto MD at [facility] [id number] / 0 Angio-Seal Evolution Vascular Closure Device [employer] #[id number] - [id number] Right: [employer] 03/03/2017 [id number] / Implanted: Qty: 1 on 06/08/2016 by Chidi Coto MD at [facility] / [id number] documented as of this encounter Results Not on filedocumented in this encounter Insurance Payer Benefit Plan / Subscriber ID Effective Dates Phone Address Type Group [facility] xxxxxxxxx 2017-Present Medicaid COMM PLAN - PLUS MANAGED MEDICAID documented as of this encounter
--- OUTSIDE RECORDS SUMMARY | 2019-06-05 18:07 | XMS REPORT | Summary of Care ---
:1960 Author Organization [facility] Address [address] [place] [address] Care Team Providers Name Role Phone Chidi Coto MD Unavailable Raffaele Downing MD Unavailable Femi Walsh Primary Care Provider Encounter Details Date Type Department Care Team Description 05/21/2019 Orders Only [facility] Doctor Unassigned, No [address] [facility] Name [address] [address] Allergies No Known Allergiesdocumented as of this encounter (statuses as of 05/28/2019) Medications Medication Sig Dispensed Refills Start Date End Date Status budesonide-formoterol Inhale 2 Puffs 2 0 Active (SYMBICORT) 160-4.5 (two) times mcg/actuation daily. inhalerIndications: PRN Indications: PRN HYDROcodone-acetaminoph 0 04/02/2016 Active en 10-325 mg tablet nitroglycerin 0.[address] 1 tablet 1 Bottle 2 04/11/2017 Active sublingual under the tongue tabletIndications: every 5 (five) Coronary artery disease minutes as involving [place] needed for Chest coronary artery of pain. [place] heart with angina pectoris atorvastatin 80 mg [...] MOUTH ONCE A artery disease DAY. involving [place] coronary artery of [place] heart without angina pectoris, Essential hypertension, PVC (premature ventricular contraction), Type 2 diabetes mellitus without complication, with long-term current use of insulin losartan 50 mg Take 1 tablet by 180 tablet 1 07/15/2018 Active tabletIndications: mouth 2 (two) Dyslipidemia, Coronary times daily. artery disease involving [place] coronary artery of [place] heart without angina pectoris, Essential hypertension, PVC (premature ventricular contraction), Type 2 diabetes mellitus without complication, with long-term current use of insulin ezetimibe (ZETIA) 10 mg Take 1 tablet by 30 tablet 5 07/21/2018 Active tablet mouth daily. documented as of this encounter (statuses as of 05/28/2019) Active Problems Problem Noted Date CAD S/P [...] without complication 01/22/2016 Coronary artery disease involving [place] coronary artery of [place] heart 01/21 with angina pectoris Chest pain 02/12/2015 documented as of this encounter (statuses as of 05/28/2019) Immunizations Name Administration Dates Next Due Influenza [...] Downing MD [address] [place] [phone] Health Maintenance Due Date Last Done [...] of this encounter Implants Implanted Type Area Icd 9 Coder Device Shelf Model / Identifier Expiration Serial / Lot Date Stent, [place] 7mmx2.5cm Viabahn Vasc 120cm Cath #[id number] - [id number] STENT W L [place] [id number] / Implanted: Qty: 1 on 06/08/2016 by Chidi oCto MD at [facility] [id number] / 0 Angio-Seal Evolution Vascular Closure Device [employer] #[id number] - [id number] Right: [employer] 03/03/2017 [id number] / Implanted: Qty: 1 on 06/08/2016 by Chidi Coto MD at [facility] [employer] NA / [id number] documented as of this encounter Procedures Procedure Name Priority Date/Time Associated Diagnosis Comments MEDICAL Routine 05/21/2019 12:01 AM CDT RELEASE/CLEARANCE FORMS documented in this encounter Results Not on filedocumented in this encounter Insurance Payer Benefit Plan / Subscriber ID Effective Dates Phone Address Type Group [facility] xxxxxxxxx 2017-Present Medicaid COMM PLAN - PLUS MANAGED MEDICAID documented as of this encounter
--- NOTE | 2019-06-05 18:37 | ER ---
Nurse's Notes [facility] Name: Christo Mcfadden Age: 59 yrs Sex: Male : 1960 Arrival Date: 06/05/2019 Time: 18:04 Bed 4 Private MD: Diagnosis: Cardiac arrest Presentation: 06/04 17:55 Chief complaint: EMS states: found unresponsive in vehicle, no pulse, not breathing, iw arrived on scene at 1726, ACLS initiated by EMS COPY DIRECTOR reports pt was vfib on monitor, pt arrives to ER CPR in progress, Vfib, intubated. Care prior to arrival: CPR via thumper performed by EMS was defibrillated and is still in progress Medication(s) given: Epi X 4, 5 shocks COPY DIRECTOR, amiodorone 300, amiodorone 150. Compressions began prior to arrival. 17:55 Method Of Arrival: EMS: [facility] iw 17:55 Acuity: JOO 1 iw 17:55 Care prior to arrival: Assisted ventilation, Oral intubation, IV initiated. 20 GA, in iw the left antecubital area, Glucose check: 200. 18:31 Coronavirus screen: Surgical mask placed on patient. Patient moved to private room, iw placed in contact and droplet isolation with eye protection until further assessment. Ebola Screen: Unable to complete the Ebola screening because:. Initial Sepsis Screen: Does the patient meet any 2 criteria? No. Patient's initial sepsis screen is negative. Does the patient have a suspected source of infection? No. Patient's initial sepsis screen is negative. Risk Assessment: Do you want to hurt yourself or someone else? Unable to obtain. 18:47 Care prior to arrival: Medication(s) given: sodium bicarb. iw Historical: - Allergies: 18:18 No Known Allergies; iw - Home Meds: 18:50 amlodipine 10 mg tab once daily [Active]; furosemide 20 mg Oral tab 1 tab once daily iw [Active]; isosorbide mononitrate 30 mg Oral Tb24 1 tab once daily [Active]; Lipitor 20 mg Oral tab 1 tab once daily [Active]; losartan 50 mg Oral tab 1 tab once daily [Active]; Neurontin 300 mg Oral cap twice a day [Active]; Ross 10-325 mg Oral tab 1 tab every 4 hours [Active]; pantoprazole 40 mg Oral TbEC 1 tab once daily [Active]; Ranexa 500 mg Oral Tb12 1 tab 2 times per day [Active]; - PMHx: 18:16 Anxiety; Asthma; benign brain neoplasm; Diabetes - NIDDM; GERD; Hypertension; iw microalbuminuria; Myocardial infarction; PERIPHERAL NEUROPATHY; TIA; - PSHx: 18:16 right knee; cardiac stents x 5; iw - Family history:: not pertinent. - Hospitalizations: : No recent hospitalization is reported. Screenin:32 Abuse screen: unable to obtain. Nutritional screening: No deficits noted. Tuberculosis iw screening: No symptoms or risk factors identified. Assessment: 18:01 CPR assessment: unresponsive, no respiratory effort, intubated, Ambu ventilation. iw Cardiac rhythm is asystole. 18:01 General: Appears obese, Behavior is unresponsive. Neuro: Level of Consciousness is iw unresponsive. Cardiovascular:. Respiratory: Respiratory effort is none. GI: Abdomen is distended, obese. Derm: Skin is intact, Skin temperature is warm. 18:04 CPR assessment: unresponsive, no respiratory effort, intubated. Cardiac rhythm is V fib.iw 18:10 CPR assessment: unresponsive, no respiratory effort, intubated. Cardiac rhythm is V fib.iw 18:13 CPR assessment: unresponsive, no respiratory effort, intubated, Ambu ventilation. iw Cardiac rhythm is V fib. 18:15 CPR assessment: unresponsive, no respiratory effort, intubated, Ambu ventilation. iw Cardiac rhythm is PEA. 18:24 Reassessment: reported to ER staff that pt was outside working all day, called her iw to tell her that he "was having a heart attack". 18:51 Reassessment: notified June Owens at [facility] # [id number] possible em candidate, will notify family. 18:58 Reass[facility] iw 19:20 Reassessment: funeral service practitioner/embalmer came and went inside the room. rr5 19:26 Reassessment: June Newton has reported that due to the COVID swab and the sg timing for results the patient is no longer a candidate and the body may be released to the home. 19:30 Reassessment: valuables given by blanca (piyush) to patient's daughter. rr5 20:00 Reassessment: according to funeral service practitioner/embalmer she spoke to funeral service practitioner/embalmer maurice, patient is not for autopsy rr5 and she contacted the home. Vital Signs: 18:16 Pulse 0; Temp 100.7(R); Weight 113.4 kg (R); ED Course: 17:55 Intubation: 7.5 Fr. ETT placed orally. placed by [facility], COPY DIRECTOR. iw 18:00 Patient has correct armband on for positive identification. iw 18:04 Patient arrived in ED. iw 18:04 Defibrillated with 200 joules. iw 18:07 Defibrillated with 200 joules. em 18:10 Defibrillated with 200 joules. em 18:13 Defibrillated with 200 joules. em 18:14 Triage completed. iw 18:22 Sam Oliveros MD is Attending Physician. rn 18:23 called the [place] [employer] to call out the Adult Education Professional bridge ironworker/ dispatch will notify the eb funeral service practitioner/embalmer. 18:29 per Officer West from [facility] this patient is a [place] resident so [place] pd will not eb be sending officers and [place] [facility] will be sending officers. 18:32 Patricio Sparks, RN is Primary Nurse. em 18:36 Sam Oliveros MD is Pronouncing Provider. rn Administered Medications: 18:00 Drug: EPINEPHrine 0.1mg/mL 1:10,000 1 mg Route: IVP; Site: left antecubital; iw 18:56 Follow up: Response: Cardiac rhythm is unchanged iw 18:00 Drug: Sodium Bicarbonate 1 amp Route: IVP; Site: left antecubital; iw 18:05 Follow up: Response: No adverse reaction; Cardiac rhythm is unchanged iw 18:00 Drug: Magnesium Sulfate 1 grams {Note: IVP.} Route: IVPB; Infused Over: 1 hrs; Site: left antecubital; 18:00 Follow up: IV Status: Completed infusion iw 18:06 Drug: EPINEPHrine 0.1mg/mL 1:10,000 1 mg Route: IVP; Site: left antecubital; iw 18:08 Follow up: Response: No adverse reaction; Cardiac rhythm is unchanged iw 18:06 Drug: Sodium Bicarbonate 1 amp Route: IVP; Site: left antecubital; iw 18:10 Follow up: Response: No adverse reaction; Cardiac rhythm is unchanged iw 18:10 Drug: EPINEPHrine 0.1mg/mL 1:10,000 1 mg Route: IVP; Site: left antecubital; iw 18:12 Follow up: Response: Blood pressure is unchanged iw 18:13 Drug: EPINEPHrine 0.1mg/mL 1:10,000 1 mg Route: IVP; Site: left antecubital; iw 18:15 Follow up: Response: No adverse reaction; Cardiac rhythm is unchanged iw Outcome: 18:16 Outcome Patient iw 18:16 Patient : Time of 18:16 Pronounced by Sam Oliveros MD 18:16 Condition: iw 21:00 Patient left the ED. bb Signatures: All Ricardo RN RN sg Patricio Sparks, RN RN em Lisa Roth RN RN bb Miryam Coppola, RN Sam Neil MD MD rn Botello, Elizabeth eb Roque, Raymond RN RN rr5 Corrections: (The following items were deleted from the chart) 18:21 18:10 Chief complaint: iw iw 19:04 18:58 Reassessment: [facility] dept notified of need for PUI iw iw 19:04 18:58 Reassessment: [facility] dept notified of need for PUI iw iw 19:18 18:07 Defibrillated with 200 joules. iw em 19:19 18:07 Defibrillated with 200 joules. em em
--- NOTE | 2019-06-05 18:37 | EDPHYS ---
Physician Documentation [facility] Name: Christo Mcfadden Age: 59 yrs Sex: Male : 1960 Arrival Date: 06/05/2019 Time: 18:04 Bed 4 Private MD: ED Physician Sam Oliveros HPI: 06/04 18:29 This 59 yrs old Black Male presents to ER via EMS with complaints of CPR. rn 18:29 Preceding the arrest, the patient collapsed, had chest pain. The arrest occurred at rn work. Pre-hospital course: The arrest was witnessed Bystanders at the scene performed CPR. ACLS details: Initial rhythm was V-fib. The presenting rhythm is V-fib. Airway: oral intubation, Medications given by EMS prior to arrival - Defibrillated X 4, Response to therapy: continued arrest. The patient has experienced similar episodes in the past. Per EMS, was at work today, called because "he was having a heart attack", when arrived, collapsed, initial scene rhythm vfib, shocked multiple times, epi multiple times as well as 300mg and 150mg amio. Continued arrest. Intubated in field. denied any respiratory symptoms or fever in recent days. + hx of MO.. Historical: - Allergies: 18:18 No Known Allergies; iw - Home Meds: 18:50 amlodipine 10 mg tab once daily [Active]; furosemide 20 mg Oral tab 1 tab once daily iw [Active]; isosorbide mononitrate 30 mg Oral Tb24 1 tab once daily [Active]; Lipitor 20 mg Oral tab 1 tab once daily [Active]; losartan 50 mg Oral tab 1 tab once daily [Active]; Neurontin 300 mg Oral cap twice a day [Active]; [place] 10-325 mg Oral tab 1 tab every 4 hours [Active]; pantoprazole 40 mg Oral TbEC 1 tab once daily [Active]; Ranexa 500 mg Oral Tb12 1 tab 2 times per day [Active]; - PMHx: 18:16 Anxiety; Asthma; benign brain neoplasm; Diabetes - NIDDM; GERD; Hypertension; iw microalbuminuria; Myocardial infarction; PERIPHERAL NEUROPATHY; TIA; - PSHx: 18:16 right knee; cardiac stents x 5; iw - Family history:: not pertinent. - Hospitalizations: : No recent hospitalization is reported. ROS: 18:29 Unable to obtain ROS due to comatose state. rn Exam: 18:29 Constitutional: Overweight male, GCS 3, intubated Head/Face: Normocephalic, rn atraumatic. Eyes: Pupils 6mm, non-reactive ENT: No oral trauma, ETT in place, 27cm at teeth upon arrival (pulled back immediately to 22cm) Cardiovascular: No spont cardiac activity. Respiratory: Bagged, absent breath sounds left side, corrected after pulling ETT back to 22cm. Abdomen/GI: soft, non-distended Skin: Cool extremities Neuro: GCs 3 Vital Signs: 18:16 Pulse 0; Temp 100.7(R); Weight 113.4 kg (R); iw Procedures: 18:29 CPR: See CPR flow sheet. Initial patient assessment: unresponsive, Ambu ventilation, rn pulses present w/ compressions, The presenting cardiac rhythm is V fib. the patient was intubated prior to arrival, Compressions: began prior to arrival. Meds given: See Meds list. despite ED evaluation and treatment, the patient . Family notified. CPR was stopped at 18:16. MDM: 18:22 Patient medically screened. rn 18:29 Differential diagnosis: arrythmia, cardiac arrest, respiratory arrest, COVID-19. Data rn reviewed: vital signs, nurses notes. 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 03 19:23 Order name: CORONAVIRUS EDNM Administered Medications: 18:00 Drug: EPINEPHrine 0.1mg/mL 1:10,000 1 mg Route: IVP; Site: left antecubital; iw 18:56 Follow up: Response: Cardiac rhythm is unchanged iw 18:00 Drug: Sodium Bicarbonate 1 amp Route: IVP; Site: left antecubital; iw 18:05 Follow up: Response: No adverse reaction; Cardiac rhythm is unchanged iw 18:00 Drug: Magnesium Sulfate 1 grams {Note: IVP.} Route: IVPB; Infused Over: 1 hrs; Site: iw left antecubital; 18:00 Follow up: IV Status: Completed infusion iw 18:06 Drug: EPINEPHrine 0.1mg/mL 1:10,000 1 mg Route: IVP; Site: left antecubital; iw 18:08 Follow up: Response: No adverse reaction; Cardiac rhythm is unchanged iw 18:06 Drug: Sodium Bicarbonate 1 amp Route: IVP; Site: left antecubital; iw 18:10 Follow up: Response: No adverse reaction; Cardiac rhythm is unchanged iw 18:10 Drug: EPINEPHrine 0.1mg/mL 1:10,000 1 mg Route: IVP; Site: left antecubital; iw 18:12 Follow up: Response: Blood pressure is unchanged iw 18:13 Drug: EPINEPHrine 0.1mg/mL 1:10,000 1 mg Route: IVP; Site: left antecubital; iw 18:15 Follow up: Response: No adverse reaction; Cardiac rhythm is unchanged iw Disposition: 18:29 . rn Disposition: Patient pronounced on 06/05/19 18:16 by Sam Oliveros. Impression: Cardiac arrest. - Released to Home. Signatures: Dispatcher [employer] Lisa Carmona RN RN bb Williams, Irene, RN RN iw Nieto, Roman, MD MD clinical rn liaison: (The following items were deleted from the chart) 19:23 18:23 Miscellaneous Lab Test+[id number] ordered. [facility] 21:00 18:37 06/05/2019 18:37 Patient pronounced on 06/05/2019 at 18:16 by Sam Oliveros. aubrey Impression: Cardiac arrest. Released to Home. rn
[2019-06-05 21:10] VITALS: TEMP 100.7
== END 2019-06-05 21:00 | disposition expired ==
LOC: ER 18:02
DX: I46.9 Cardiac arrest, cause unspecified (principal); I10 Essential (primary) hypertension; E11.9 Type 2 diabetes mellitus without complications; I25.2 Old myocardial infarction; F41.9 Anxiety disorder, unspecified; Z95.818 Presence of other cardiac implants and grafts
CPT/HCPCS: 92960; 31500; 96375; 96374; 92950; 99285; U0001; J3475; J0171; J7040